=== PATIENT | female | born 1940 | race Caucasian/White ===

== ENCOUNTER 2017-12-27 08:47 | Observation (INO) | payer OTHER ==
[~2017-12-27] VITALS: Ht 162.6 cm; Wt 72.6 kg
[~2017-12-27 08:47] MED LIST: ATROVENT 0.02%2.5 ML INH; AZELASTINE137 MCG/0. INH; BYSTOLIC10 MG PO; CHERATUSSIN AC118 ML PO; FLUTICASONE PRO16 GM INH; FUROSEMIDE40 MG PO; HYZAAR 100-12.1 EACH; LEVAQUIN500 MG PO; NICOTINE PATCH1 EAC1 TOP; PHENERGAN VC-C120 ML PO; POTASSIUM CHLO10 ME1 PO; PREDNISONE10 M1 PO; PREDNISONE10 MG PO; PREDNISONE20 MG PO; PREDNISONE5 MG PO; SPIRIVA HANDIH18 MCG INH; SYMBICORT 160-4.6 GM IH; TESSALON PERLE100 M1; VENTOLIN HFA18 GM INH; XANAX0.25 MG PO; Z CIPRO PO; Z TYLENOL PO; Z.0.ALBUTEROL SULF8. HHN; Z.0.DALIRESP500 MCG PO; Z.0.PREDNISONE20 MG PO; Z.0.ZITHROMAX250 MG PO; [UNRECOGNIZED DRUG - OTHER] PO; [UNRECOGNIZED DRUG - OTHER] PO; lozartan
[2017-12-27] MEDS ORDERED: ONDANSETRON HCL INJ 2 MG/ML VIAL IV STA (09:07)
[2017-12-27] MEDS ORDERED: SODIUM CHLORIDE 0.9% 1000ML 1,000 ML IV STA (09:07)
[2017-12-27] MEDS ORDERED: MORPHINE SULFATE 2 MG/ML SYR IV STA (09:07)
--- NOTE | 2017-12-27 09:28 | Diagnostic Imaging Report ---
PROCEDURE: CHEST SINGLE (PORTABLE) COMPARISON: 09/03/2008. INDICATIONS: LEFT RIB PAIN, SHORT OF BREATH FINDINGS: The lungs are hyperinflated. Right greater than left apical pleural-parenchymal scar. Left upper lobe calcified granuloma. No airspace consolidation, pleural effusion, or pneumothorax. Tortuous thoracic aorta with otherwise normal cardiomediastinal contour. No acute osseous abnormality. CONCLUSION: No acute cardiopulmonary normality. Pulmonary hyperinflation compatible with emphysema. Right greater than left apical pleural-parenchymal scar, presumably postinfectious. Dictated by: Tam Flores M.D. on 12/27/2017 at 9:32 Electronically approved by: Tam Flores M.D. on 12/27/2017 at 9:32
[2017-12-27 09:49] LABS: BASOPHILS # (AUTO) 0.1 (0.0-0.1); BASOPHILS % 1.2 % (0.0-1.0); EOSINOPHILS # (AUTO) 0.2 (0.0-0.4); HEMATOCRIT 45.6 % (34.2-44.1); HEMOGLOBIN 15.8 g/dL (12.0-16.0); LYMPHOCYTES # (AUTO) 2.4 (1.0-3.2); LYMPHOCYTES % 22.9 % (18.0-39.1); MEAN CORPUSCULAR HEMOGLOBIN 31.3 pg (28-32); MEAN CORPUSCULAR HGB CONC 34.6 g/dL (31-35); MEAN CORPUSCULAR VOLUME 90.5 fL (81-99); MONOCYTES # (AUTO) 0.8 (0.2-0.8); MONOCYTES % 7.9 % (4.4-11.3); NEUTROPHILS # (AUTO) 6.8 (2.1-6.9); NEUTROPHILS % 65.8 % (38.7-80.0); PLATELET COUNT 271 x10e3/uL (140-360); RED BLOOD COUNT 5.04 x10e6/uL (3.6-5.1); RED CELL DISTRIBUTION WIDTH 12.8 % (11.7-14.4)
[2017-12-27 09:52] LABS: ABG HCO3 28 mmol/L (23-28); ABG PCO2 40 mmHg (41-51); ABG PH 7.46 (7.31-7.41); ABG PO2 110 mmHg (80-105)
[2017-12-27 10:03] LABS: INR 1.04; PROTHROMBIN TIME 12.8 seconds (11.9-14.5)
[2017-12-27 10:04] LABS: PARTIAL THROMBOPLASTIN TIME 27.1 seconds (23.8-35.5)
[2017-12-27 10:09] LABS: ALANINE AMINOTRANSFERASE 9 IU/L (0-55); ALBUMIN 3.8 g/dL (3.5-5.0); ALBUMIN/GLOBULIN RATIO 1.2 (0.8-2.0); ALKALINE PHOSPHATASE 78 IU/L (40-150); ANION GAP 13.8 mmol/L (8-16); BLOOD UREA NITROGEN 15 mg/dL (7-26); BUN/CREATININE RATIO 19 (6-25); CALCIUM 9.7 mg/dL (8.4-10.2); CARBON DIOXIDE 29 mmol/L (22-29); CHLORIDE 93 mmol/L (98-107); CREATINE KINASE 84 IU/L (29-168); CREATININE, SERUM 0.81 mg/dL (0.57-1.11); EST GLOMERULAR FILTRATION RATE > 60 ML/MIN (60-); GLUCOSE 101 mg/dL (74-118); POTASSIUM 3.8 mmol/L (3.5-5.1); SODIUM 132 mmol/L (136-145)
[2017-12-27] MEDS ORDERED: AZITHROMYCIN 500MG/SOD CHL 0.9% 250ML BAG IV SCH (11:00)
[2017-12-27] MEDS ORDERED: DEXTROSE 50% SYRINGE 50 ML IV PRN (11:00)
[2017-12-27] MEDS: INSULIN REGULAR, HUMAN 100 UNIT/1 ML 3ML VIAL SQ SCH ×3 (11:30→21:50)
[2017-12-27] MEDS ORDERED: IPRATROPIUM BROMIDE 0.02% 2.5 ML NEB NEB SCH (12:00)
[2017-12-27] MEDS ORDERED: AZITHROMYCIN 500MG/NS 250 ML 250 ML IV SCH (12:00)
[2017-12-27] MEDS: IPRATROPIUM BROMIDE 0.02% 2.5 ML NEB NEB SCH ×2 (12:08→19:42)
[2017-12-27] MEDS: ALBUTEROL SULF 0.083% NEB SOLN 3 ML NEB NEB SCH ×4 (12:08→23:08)
[2017-12-27] MEDS: SODIUM CHLORIDE 0.9% 1000ML 1,000 ML IV SCH ×2 (12:45→20:47)
[2017-12-27] MEDS: NICOTINE 21 MG/EA PATCH TOP SCH (13:19)
[2017-12-27] MEDS: METHYLPREDNISOLONE SOD SUCC 40 MG/ML VIAL IV SCH ×2 (14:00→21:50)
[2017-12-27 15:46] VITALS: BP 148/65
[2017-12-27] MEDS ORDERED: OXYBUTYNIN CHLOR5 MG PO (16:18)
[2017-12-27] MEDS ORDERED: ASPIR 8181 MG PO (16:21)
[2017-12-27] MEDS ORDERED: CALCIUM 600 MG1 EACH PO (16:25)
[2017-12-27] MEDS ORDERED: VITAMIN D32000 UNI1 PO (16:25)
[2017-12-27 16:54] VITALS: BP 148/65
[2017-12-27] MEDS ORDERED: LOSARTAN POTAS100 MG PO (17:15)
[2017-12-27] MEDS ORDERED: BUDESONIDE/FORMOTEROL 160/4.5MCG INHALER INH PRN (17:15)
[2017-12-27] MEDS ORDERED: ACETAMINOPHEN/CODEINE 300MG - 30MG TAB PO PRN (17:15)
[2017-12-27 20:00] VITALS: BP 137/57
[2017-12-27 21:50] VITALS: BP 137/59
[2017-12-28] VITALS (7 sets, daily range): BP systolic 128–143; BP diastolic 60–73
[2017-12-28] MEDS: ALBUTEROL SULF 0.083% NEB SOLN 3 ML NEB NEB SCH ×5 (02:45→22:38)
[2017-12-28] MEDS: IPRATROPIUM BROMIDE 0.02% 2.5 ML NEB NEB SCH ×4 (02:45→18:50)
[2017-12-28] MEDS: METHYLPREDNISOLONE SOD SUCC 40 MG/ML VIAL IV SCH (06:02)
[2017-12-28 06:07] LABS: BASOPHILS % 0.4 % (0.0-1.0); HEMATOCRIT 39.6 % (34.2-44.1); HEMOGLOBIN 13.6 g/dL (12.0-16.0); LYMPHOCYTES # (AUTO) 0.8 (1.0-3.2); LYMPHOCYTES % 10.1 % (18.0-39.1); MEAN CORPUSCULAR HEMOGLOBIN 31.5 pg (28-32); MEAN CORPUSCULAR HGB CONC 34.3 g/dL (31-35); MEAN CORPUSCULAR VOLUME 91.7 fL (81-99); MONOCYTES # (AUTO) 0.2 (0.2-0.8); MONOCYTES % 2.1 % (4.4-11.3); NEUTROPHILS # (AUTO) 6.5 (2.1-6.9); NEUTROPHILS % 87.1 % (38.7-80.0); PLATELET COUNT 208 x10e3/uL (140-360); RED BLOOD COUNT 4.32 x10e6/uL (3.6-5.1); RED CELL DISTRIBUTION WIDTH 12.8 % (11.7-14.4)
[2017-12-28 06:24] LABS: ANION GAP 10.2 mmol/L (8-16); BLOOD UREA NITROGEN 15 mg/dL (7-26); BUN/CREATININE RATIO 21 (6-25); CALCIUM 8.9 mg/dL (8.4-10.2); CARBON DIOXIDE 26 mmol/L (22-29); CHLORIDE 100 mmol/L (98-107); CREATININE, SERUM 0.71 mg/dL (0.57-1.11); EST GLOMERULAR FILTRATION RATE > 60 ML/MIN (60-); GLUCOSE 145 mg/dL (74-118); POTASSIUM 4.2 mmol/L (3.5-5.1); SODIUM 132 mmol/L (136-145)
--- NOTE | 2017-12-28 06:50 | Diagnostic Imaging Report ---
CHEST SINGLE (PORTABLE), 12/28/2017 5:00 AM Technique: CHEST SINGLE (PORTABLE) Comparison: Previous day Clinical history: Pneumonia Findings: See Impression Impression: 1. Stable cardiomediastinal silhouette. 2. Stable hyperinflation. 3. Stable mild left basilar opacity. No significant effusion. Signed by: Dr Diane Madsen MD on 12/28/2017 6:47 AM
[2017-12-28] MEDS: INSULIN REGULAR, HUMAN 100 UNIT/1 ML 3ML VIAL SQ SCH ×4 (07:30→21:00)
[2017-12-28] MEDS ORDERED: ALPRAZOLAM 0.25 MG TAB PO SCH (09:00)
[2017-12-28] MEDS: ASPIRIN 81 MG CHEW TAB PO SCH (10:45)
[2017-12-28] MEDS: NICOTINE 21 MG/EA PATCH TOP SCH (10:45)
[2017-12-28] MEDS: FUROSEMIDE 40 MG TAB PO SCH (10:45)
[2017-12-28] MEDS: OXYBUTYNIN CHLORIDE 5 MG TAB PO SCH (10:45)
[2017-12-28] MEDS: POTASSIUM CHLORIDE 10 MEQ TABCR PO SCH (10:45)
[2017-12-28] MEDS: LOSARTAN POTASSIUM 100 MG TAB PO SCH (10:45)
[2017-12-28] MEDS: NEBIVOLOL 10 MG TAB PO SCH (10:45)
[2017-12-28] MEDS ORDERED: HYDROCODONE/APAP 10MG-325MG TAB PO PRN (11:15)
[2017-12-28] MEDS ORDERED: ALPRAZOLAM 0.25 MG TAB PO PRN (12:00)
[2017-12-28] MEDS: BENZONATATE 100 MG CAP PO PRN ×2 (12:13→18:15)
--- NOTE | 2017-12-28 12:16 | Diagnostic Imaging Report ---
CT chest without enhancement CPT code: 43234 INDICATION: Fall, left rib pain TECHNIQUE: Thin collimation axial images obtained from the thoracic inlet to the level of the diaphragm without intravenous contrast. RADIATION DOSE: Total DLP: 557.9 mGy*cm Estimated effective dose: (DLP x 0.015 x size factor) mSv CTDIvol has been reviewed. It is below the limits set by the Radiation Protocol Committee (RPC). COMPARISON: CT chest 04/02/2016. CHEST FINDINGS: Lymph nodes: No enlarged axillary, supraclavicular lymph nodes. Multiple mediastinal lymph nodes measure up to 10 mm. No enlarged subcarinal or hilar lymph nodes. Thyroid: Low attenuating nodule in the right lobe measures 1.4 x 1.6 cm. This is stable.. Mediastinum: The heart is mildly enlarged with coronary artery calcifications. The ascending aorta measures 3.7 cm in diameter and is stable. The main pulmonary artery measures 3.1 cm in diameter and is stable. No pericardial effusion. The esophagus is collapsed. Airways: Clear. Lungs: Right: Moderate apical pleural-parenchymal thickening is stable. There is diffuse centrilobular emphysema. No pulmonary nodule or infiltrate.. Left: Moderate apical pleural-parenchymal thickening is stable. There is diffuse centrilobular emphysema. Calcified granuloma in the lateral upper lobe is stable. No soft tissue mass. There is mild left basilar atelectasis.. Pleura: Left pleural effusion the posterior costophrenic angle measures 13 mm. There is a 5 mm right pleural effusion. No pneumothorax.. ABDOMEN FINDINGS: Visualized portions of the liver, pancreas, and spleen demonstrate no evidence of mass. There is stable lobulation of the splenic capsule. A cyst in the right kidney measures 2.3 cm and is stable. Calcifications are present throughout the abdominal aorta without aneurysmal dilatation.. Bones: Nondisplaced fractures of the left seventh and eighth ribs, anterior aspects. No evidence of right rib fracture. The sternum is intact. Mild kyphosis of the thoracic spine is stable without compression deformities. Degenerative changes of the lower cervical and lower thoracic spine are stable. There are mild to moderate degenerative changes of the upper lumbar spine. Soft tissues: Unremarkable. IMPRESSION: 1. Nondisplaced fractures of the left seventh and eighth ribs, anterior aspects. 2. Small bilateral pleural effusions. No pneumothorax. 3. Centrilobular emphysema. Stable apical pleural-parenchymal thickening. 4. Stable thyroid nodule. 5. Stable ascending aortic ectasia. Signed by: Dr. Zainab Bardales MD on 12/28/2017 12:13 PM
[2017-12-28] MEDS: LEVOFLOXACIN 500 MG TAB PO SCH (12:30)
[2017-12-28] MEDS: PREDNISONE 20 MG TAB PO SCH (12:30)
[2017-12-28] MEDS: MELOXICAM 7.5 MG TAB PO SCH ×2 (12:30→18:12)
--- NOTE | 2017-12-28 23:28 | History and Physical ---
CHIEF COMPLAINT: Status post fall with left-sided rib cage pain and left thigh pain. HISTORY OF PRESENT ILLNESS: Patient is a 77-year-old female with chronic COPD, with acute exacerbation, after she fell and hit her left thigh. The patient was wheezing. She is oxygen dependent. Per patient, for the past few months, she has increased her smoking from 1 pack to 2 packs per day. The patient came in with increasing shortness of breath but more importantly shortness of breath that is secondary to her left-sided rib cage pain that was not addressed per patient. PAST MEDICAL HISTORY: COPD, hypertension, anxiety disorder, and oxygen dependent. PAST SURGICAL HISTORY: Noncontributory. SOCIAL HISTORY: Patient is a 2 elpk-mfa-hwn smoker for many years. She denied alcohol usage. No recreational drug usage. ALLERGIES: KEFLEX. HOME MEDICATIONS: List is reviewed. REVIEW OF SYSTEMS: Left-sided chest pain status post fall. Increasing shortness of breath with difficulty with deep inspiration secondary to the left-sided rib cage pain after a fall. Left leg pain. PHYSICAL EXAMINATION VITAL SIGNS: Temperature is 98, blood pressure 137/73, pulse rate 93, and respirations 18. GENERAL: The patient is not in acute distress. She is awake. HEENT: Normocephalic, atraumatic, anicteric. NECK: Supple grossly. PULMONARY: Diminished breath sounds without any coarseness. There was wheezing. CARDIOVASCULAR: Regular rate and rhythm. ABDOMEN: Soft. Left upper abdominal area rib cage tenderness with some bruising. EXTREMITIES: Left thigh bruises. NEUROLOGIC: No focal deficits. LABORATORY: WBC is 10, hemoglobin is 15, hematocrit 46, and platelets are 271,000. Chemistry: Sodium 132, potassium 4.2, chloride 100, bicarb 26, BUN 15, and creatinine 0.7, and glucose is 145. CT of the chest which was done showed nondisplaced fracture of the left 7th and 8th ribs in its anterior aspect. Small bilateral pleural effusion. No pneumothorax. Centrilobular emphysema. IMPRESSIONS 1. Status post fall with left-sided chest pain secondary to nondisplaced fracture of the left 7th and 8th rib cage. 2. Opotw-xz-lidacbr exacerbation of chronic obstructive pulmonary disease. PLAN: Continue with supportive measures. Pain control. Continue with oxygen support. The patient should be able to go home within 24 to 48 hours. Job#: [id number] CF
[2017-12-29] VITALS: BP 159/70
[2017-12-29] MEDS: IPRATROPIUM BROMIDE 0.02% 2.5 ML NEB NEB SCH ×4 (00:15→18:49)
[2017-12-29] MEDS: ALBUTEROL SULF 0.083% NEB SOLN 3 ML NEB NEB SCH ×4 (00:15→18:49)
[2017-12-29 04:00] VITALS: BP 139/64
[2017-12-29] MEDS: BENZONATATE 100 MG CAP PO PRN ×3 (05:30→18:00)
[2017-12-29] MEDS: INSULIN REGULAR, HUMAN 100 UNIT/1 ML 3ML VIAL SQ SCH ×4 (07:30→20:43)
[2017-12-29] MEDS: ASPIRIN 81 MG CHEW TAB PO SCH (08:50)
[2017-12-29] MEDS: NEBIVOLOL 10 MG TAB PO SCH (08:50)
[2017-12-29] MEDS: MELOXICAM 7.5 MG TAB PO SCH ×2 (08:50→18:00)
[2017-12-29] MEDS: OXYBUTYNIN CHLORIDE 5 MG TAB PO SCH (08:51)
[2017-12-29] MEDS: POTASSIUM CHLORIDE 10 MEQ TABCR PO SCH (08:51)
[2017-12-29] MEDS: PREDNISONE 20 MG TAB PO SCH (08:51)
[2017-12-29] MEDS: LOSARTAN POTASSIUM 100 MG TAB PO SCH (08:51)
[2017-12-29] MEDS: FUROSEMIDE 40 MG TAB PO SCH (09:00)
[2017-12-29 10:34] VITALS: BP 141/64
[2017-12-29] MEDS: NICOTINE 21 MG/EA PATCH TOP SCH (11:16)
[2017-12-29] MEDS: LEVOFLOXACIN 500 MG TAB PO SCH (11:17)
[2017-12-29] MEDS ORDERED: TRIAMCINOLONE ACET 40 MG/ML VIAL IM ONE (12:00)
[2017-12-29 12:31] VITALS: BP 141/64
[2017-12-29] MEDS ORDERED: LEVAQUIN500 MG PO (15:23)
[2017-12-29] MEDS ORDERED: TESSALON PERLE100 MG PO (15:25)
[2017-12-29] MEDS ORDERED: MOBIC15 MG PO (15:26)
[2017-12-29 16:49] VITALS: BP 158/69
--- NOTE | 2017-12-29 18:01 | Discharge Summary ---
PCP: Dr. Tam Beckett FINAL DIAGNOSES 1. Status post fall with left 6th and 7th rib fractures. 2. Baseline chronic obstructive pulmonary disease with mild acute exacerbation. 3. Baseline oxygen dependency. SUMMARY: This 77-year-old female came in status post fall. She had some left chest contusion and left thigh contusion; and because of the pain, the patient was unable to breathe as well. Baseline COPD, severe emphysema, on multiple medications. She is also oxygen dependent, 2 to 3 liters per minute. Patient is afebrile. White cell count is normal. CT scan showed left 7th and 8th ribs inferior aspect nondisplaced fractures. There are only small bilateral pleural effusions. Centrilobular emphysema. Stable apical pleural and parenchymal thickening. Patient is stable. She will go home today. She will discharge home with the following instructions: 1. Resume home medications. 2. Levaquin 500 mg daily for 5 days. 3. Lory-Tussin AC 5 mL q.6 p.r.n. for cough. 4. Tessalon Perles 100 mg q.4 p.r.n. for cough. 5. Mobic 7.5 mg b.i.d. for pain. 6. Medrol Dosepak per instructions. The patient does have Tylenol No. 3 at home. She also has other medications for her lungs as well. Advised the patient to increase her oxygen demand to 1 to 2 liters extra if she exerts herself or using a longer oxygen tube. The patient expressed an understanding. She is stable to go home today. Job#: [id number]
[2017-12-29 20:00] VITALS: BP 138/78
[2017-12-30] VITALS: BP 151/68
[2017-12-30] MEDS: ALBUTEROL SULF 0.083% NEB SOLN 3 ML NEB NEB SCH ×3 (00:10→11:23)
[2017-12-30] MEDS: IPRATROPIUM BROMIDE 0.02% 2.5 ML NEB NEB SCH ×3 (00:10→11:24)
[2017-12-30 04:00] VITALS: BP 144/63
[2017-12-30] MEDS: INSULIN REGULAR, HUMAN 100 UNIT/1 ML 3ML VIAL SQ SCH ×2 (07:30→11:30)
[2017-12-30 08:38] VITALS: BP 169/67
[2017-12-30] MEDS: ASPIRIN 81 MG CHEW TAB PO SCH (08:55)
[2017-12-30] MEDS: MELOXICAM 7.5 MG TAB PO SCH (08:55)
[2017-12-30] MEDS: NEBIVOLOL 10 MG TAB PO SCH (08:56)
[2017-12-30] MEDS: LOSARTAN POTASSIUM 100 MG TAB PO SCH (08:58)
[2017-12-30] MEDS: PREDNISONE 20 MG TAB PO SCH (08:58)
[2017-12-30] MEDS: FUROSEMIDE 40 MG TAB PO SCH (08:58)
[2017-12-30] MEDS: OXYBUTYNIN CHLORIDE 5 MG TAB PO SCH (08:58)
[2017-12-30] MEDS: POTASSIUM CHLORIDE 10 MEQ TABCR PO SCH (08:59)
[2017-12-30 09:00] VITALS: BP 169/67
[2017-12-30] MEDS ORDERED: LORATADINE 10 MG TAB PO SCH (09:00)
[2017-12-30] MEDS ORDERED: FLUTICASONE PROPIONATE NASAL SPRAY NS SCH (09:45)
[2017-12-30] MEDS: LEVOFLOXACIN 500 MG TAB PO SCH (11:21)
[2017-12-30] MEDS: NICOTINE 21 MG/EA PATCH TOP SCH (11:21)
[2017-12-30 12:28] VITALS: BP 147/67
[2017-12-30] MEDS ORDERED: SENNA LAX8.6 MG (14:23)
[2017-12-30] MEDS ORDERED: CLARITIN10 M2 (14:28)
[2017-12-30] MEDS ORDERED: NORCO 10-325 T1 EACH (14:41)
== END 2017-12-30 14:50 | disposition home or self-care (01) ==
LOC: ER 08:47 → ERHOLD 11:23 → MED/SURG 14:43
PROVIDERS: ADMIT Internal Medicine; ATTEND Internal Medicine
DX: J44.1 Chronic obstructive pulmonary disease with (acute) exacerbation (principal); S20.212A Contusion of left front wall of thorax, initial encounter; S22.42XA Multiple fractures of ribs, left side, initial encounter for closed fracture; S70.12XA Contusion of left thigh, initial encounter; I10 Essential (primary) hypertension; I11.0 Hypertensive heart disease with heart failure; I50.9 Heart failure, unspecified; E11.9 Type 2 diabetes mellitus without complications; F17.210 Nicotine dependence, cigarettes, uncomplicated; W19.XXXA Unspecified fall, initial encounter; Z99.81 Dependence on supplemental oxygen; F41.9 Anxiety disorder, unspecified
CPT/HCPCS: 36415 ×4; 71045 ×2; 71250; 80048; 80053; 82550; 82553; 82805; 82948 ×4; 83880; 84484; 85025 ×2; 85610; 85730; 87040; 93005; 94640 ×8; 99284; G0378 ×4; J0456; J2270; J2405; J2920 ×2; J3301; J7030; 36600

== ENCOUNTER 2018-05-07 13:36 | Inpatient (IN) | payer OTHER ==
[~2018-05-07] VITALS: Ht 162.6 cm; Wt 71.2 kg
[~2018-05-07 13:36] MED LIST changes: +ASPIR 8181 MG PO; +CALCIUM 600 MG1 EACH PO; +CLARITIN10 M2; +LOSARTAN POTAS100 MG PO; +MOBIC15 MG PO; +NORCO 10-325 T1 EACH; +OXYBUTYNIN CHLOR5 MG PO; +SENNA LAX8.6 MG; +TESSALON PERLE100 MG PO; +VITAMIN D32000 UNI1 PO
[2018-05-07] MEDS ORDERED: METHYLPREDNISOLONE SOD SUCC 125 MG/2ML VIAL IV ONE (15:00)
[2018-05-07] MEDS ORDERED: ALBUTEROL/IPRATROPIUM 3 ML NEB NEB ONE (15:00)
[2018-05-07 15:11] LABS: BASOPHILS # (AUTO) 0.1 (0.0-0.1); EOSINOPHILS # (AUTO) 0.1 (0.0-0.4); EOSINOPHILS % 0.7 % (0.0-6.0); HEMATOCRIT 42.8 % (34.2-44.1); HEMOGLOBIN 14.4 g/dL (12.0-16.0); LYMPHOCYTES # (AUTO) 1.7 (1.0-3.2); LYMPHOCYTES % 15.4 % (18.0-39.1); MEAN CORPUSCULAR HGB CONC 33.6 g/dL (31-35); MONOCYTES # (AUTO) 0.4 (0.2-0.8); MONOCYTES % 3.6 % (4.4-11.3); NEUTROPHILS # (AUTO) 8.9 (2.1-6.9); NEUTROPHILS % 78.9 % (38.7-80.0); PLATELET COUNT 241 x10e3/uL (140-360); RED BLOOD COUNT 4.65 x10e6/uL (3.6-5.1); RED CELL DISTRIBUTION WIDTH 12.8 % (11.7-14.4)
[2018-05-07 15:23] LABS: INR 0.88; PROTHROMBIN TIME 12.8 seconds (11.9-14.5)
[2018-05-07 15:24] LABS: PARTIAL THROMBOPLASTIN TIME 26.7 seconds (23.8-35.5)
--- NOTE | 2018-05-07 15:29 | Diagnostic Imaging Report ---
A single frontal view of the chest. HISTORY: Shortness of breath COMPARISON: Chest radiograph December 28, 2017. CT of the chest December 28, 2017. DISCUSSION: Portable technique, limits sensitivity of the exam. Overlying monitoring leads. Tubes/Lines: None Lungs and pleura: Mild biapical pleural-parenchymal scarring. Mild flattening of the diaphragms. No evidence of a consolidative pneumonia or pulmonary alveolar edema. No definite pleural effusion or pneumothorax is identified. Heart and mediastinum: The cardiomediastinal silhouette appears unremarkable. Bones: No acute osseous lesion is identified, given this limited exam. IMPRESSION: 1. Findings compatible with emphysema. 2. No consolidative pneumonia. Signed by: Dr. Sanjeev Morrison D.O., M.M.M. on 05/07/2018 3:25 PM
[2018-05-07 15:33] LABS: ALANINE AMINOTRANSFERASE 10 IU/L (0-55); ALBUMIN 3.4 g/dL (3.5-5.0); ALBUMIN/GLOBULIN RATIO 1.1 (0.8-2.0); ALKALINE PHOSPHATASE 67 IU/L (40-150); ANION GAP 16.9 mmol/L (8-16); BLOOD UREA NITROGEN 16 mg/dL (7-26); BUN/CREATININE RATIO 22 (6-25); CALCIUM 9.8 mg/dL (8.4-10.2); CARBON DIOXIDE 22 mmol/L (22-29); CHLORIDE 93 mmol/L (98-107); CREATINE KINASE 39 IU/L (29-168); CREATININE, SERUM 0.72 mg/dL (0.57-1.11); EST GLOMERULAR FILTRATION RATE > 60 ML/MIN (60-); GLUCOSE 117 mg/dL (74-118); MAGNESIUM 1.8 MG/DL (1.3-2.1); POTASSIUM 3.9 mmol/L (3.5-5.1); SODIUM 128 mmol/L (136-145)
[2018-05-07] MEDS ORDERED: VITAMIN B12-FO1 EACH PO (16:01)
[2018-05-07] MEDS ORDERED: TYLENOL WITH C1 EACH PO (16:01)
[2018-05-07] MEDS ORDERED: XANAX0.25 MG PO (16:01)
[2018-05-07] MEDS ORDERED: SYMBICORT 16010.2 GM INH (16:01)
[2018-05-07] MEDS ORDERED: VITAMIN D32000 UNIT PO (16:01)
[2018-05-07] MEDS ORDERED: ALBUTEROL/IPRATROPIUM 3 ML NEB NEB PRN (17:00)
--- NOTE | 2018-05-07 17:10 | NUR ---
AT 1645 PT LUNGS REASSESSED WHEEZING NOTED IN UPPER LOBES; MARY FOREST FIRE PREVENTION MANAGER NOTIFIED; BREATHING TREATMENT ORDERED
[2018-05-07] MEDS ORDERED: SODIUM CHLORIDE FLUSH 10 ML SYR INJ PRN (18:15)
[2018-05-07] MEDS ORDERED: MORPHINE SULFATE 2 MG/ML SYR IV STA (19:24)
--- NOTE | 2018-05-07 19:27 | NUR ---
PATIENT STATES SHE HAS HAD CHEST PRESSURE FOR THE PAST 10 MINUTES, DID EKG AND CHECKED LAST TROPONINS, EKG SHOWED NSR, MARY PLASTER WHITTLER REVIEWED EKG. ONE TIME ORDER OF MORPHINE. OK TO TRANSFER TO FLOOR
[2018-05-07] MEDS ORDERED: MORPHINE SULFATE INJ 4 MG/ML INJ IV ONE (19:45)
[2018-05-07] MEDS: METHYLPREDNISOLONE SOD SUCC 125 MG/2ML VIAL IV SCH (22:15)
--- NOTE | 2018-05-07 22:20 | NUR ---
Blood drawn and sent to lab for 2nd set of cardiac enzymes
[2018-05-07 23:15] LABS: CREATINE KINASE 46 IU/L (29-168)
[2018-05-08] VITALS (10 sets, daily range): BP systolic 120–155; BP diastolic 58–80
--- NOTE | 2018-05-08 00:05 | NUR ---
Pt resting comfortably with eyes closed. No s/s of distress noted.
[2018-05-08 05:20] LABS: BASOPHILS % 0.2 % (0.0-1.0); HEMATOCRIT 38.2 % (34.2-44.1); LYMPHOCYTES # (AUTO) 1.1 (1.0-3.2); LYMPHOCYTES % 19.3 % (18.0-39.1); MEAN CORPUSCULAR HEMOGLOBIN 30.9 pg (28-32); MEAN CORPUSCULAR VOLUME 90.7 fL (81-99); MONOCYTES # (AUTO) 0.2 (0.2-0.8); MONOCYTES % 3.3 % (4.4-11.3); NEUTROPHILS # (AUTO) 4.2 (2.1-6.9); NEUTROPHILS % 76.8 % (38.7-80.0); PLATELET COUNT 210 x10e3/uL (140-360); RED BLOOD COUNT 4.21 x10e6/uL (3.6-5.1); RED CELL DISTRIBUTION WIDTH 12.7 % (11.7-14.4)
[2018-05-08 05:42] LABS: ANION GAP 12.1 mmol/L (8-16); BLOOD UREA NITROGEN 20 mg/dL (7-26); BUN/CREATININE RATIO 29 (6-25); CALCIUM 9.1 mg/dL (8.4-10.2); CARBON DIOXIDE 25 mmol/L (22-29); CHLORIDE 95 mmol/L (98-107); CREATININE, SERUM 0.68 mg/dL (0.57-1.11); EST GLOMERULAR FILTRATION RATE > 60 ML/MIN (60-); GLUCOSE 146 mg/dL (74-118); MAGNESIUM 1.9 MG/DL (1.3-2.1); POTASSIUM 4.1 mmol/L (3.5-5.1); SODIUM 128 mmol/L (136-145)
[2018-05-08] MEDS: METHYLPREDNISOLONE SOD SUCC 125 MG/2ML VIAL IV SCH ×3 (05:50→21:30)
--- NOTE | 2018-05-08 05:50 | NUR ---
Pt states she feels short of breath. O2 saturation @ 98% on 2.5L via nc, RR 26. Accessory muscle use noted with breathing. Called respiratory for breathing treatment.
[2018-05-08] MEDS: ALBUTEROL/IPRATROPIUM 3 ML NEB NEB PRN ×4 (05:55→16:05)
[2018-05-08 06:42] LABS: CREATINE KINASE 50 IU/L (29-168)
[2018-05-08] MEDS: NICOTINE 7 MG PATCH TOP SCH (08:40)
--- NOTE | 2018-05-08 11:03 | NUR ---
Called Dr. Mason Sears's office and spoke with Maryanne for consult order.
[2018-05-08 12:50] LABS: CREATINE KINASE 60 IU/L (29-168)
[2018-05-08] MEDS ORDERED: ACETAMINOPHEN/CODEINE 300MG - 30MG TAB PO PRN (14:45)
[2018-05-08] MEDS: PROMETHAZINE/CODEINE 5 ML UDC PO PRN (15:27)
[2018-05-08] MEDS: BUDESONIDE/FORMOTEROL 160/4.5MCG INHALER INH SCH (17:00)
[2018-05-08 17:44] LABS: ABG HCO3 28 mmol/L (23-28); ABG PCO2 42 mmHg (41-51); ABG PH 7.43 (7.31-7.41); ABG PO2 98 mmHg (80-105)
--- NOTE | 2018-05-08 17:56 | History and Physical ---
CHIEF COMPLAINT: Acute exacerbation, of COPD, dyspnea and shortness of breath. HISTORY OF PRESENT ILLNESS: Patient is a 77-year-old female with chronic COPD, worsening condition. The patient is still smoking. She uses oxygen at home. The patient is with acute exacerbation of COPD. The patient is stable at this time. PAST MEDICAL HISTORY: COPD. Hypertension. History of lung nodule in the right upper lobe, status post biopsy, negative for malignancy at the time. Tonsillectomy. SOCIAL HISTORY: The patient is still a smoker. She does not drink alcohol. No recreational drug use. HOME MEDICATIONS: List reviewed. ALLERGIES: NO KNOWN ALLERGIES. REVIEW OF SYSTEMS: Shortness of breath and wheezing. PHYSICAL EXAMINATION: GENERAL: The patient is in no acute distress. She is awake. VITAL SIGNS: Temperature 98. Blood pressure 146/66. Pulse rate is 89, respirations 18. HEENT: Normocephalic, atraumatic. NECK: Supple grossly. PULMONARY: Diminished breath sounds with bilateral coarseness and rhonchi. CARDIOVASCULAR: S1 and S2. Regular rate and rhythm. ABDOMEN: Soft, nontender, nondistended. EXTREMITIES: No cyanosis or edema. NEUROLOGIC: No gross focal deficits. LABORATORY: Sodium is 128, potassium 4.1, chloride 98, bicarb 25, BUN 20, creatinine 0.6. Glucose 146. WBC 5.5, hemoglobin 13. Hematocrit 38. Platelets 210,000. IMPRESSION: 1. Acute exacerbation of chronic obstructive pulmonary disease. 2. Possible pneumonia. 3. History of right upper lobe mass, status post biopsies, non-malignant. PLAN: Continue with nebulizer treatment. Will monitor the patient closely. IV antibiotics. Nebulizer. IV steroids. Repeat CT scan of the chest. Job#: [id number]
[2018-05-08] MEDS: CEFTRIAXONE SOD 1 GM/NS 50 ML 50 ML IV SCH (18:05)
[2018-05-08] MEDS: AZITHROMYCIN 500MG/NS 250 ML 250 ML IV SCH (18:36)
--- NOTE | 2018-05-08 18:57 | NUR ---
Report given to Mason Varma RN
--- NOTE | 2018-05-08 19:23 | NUR ---
Nutrition Intervention Note RD Recommendation(s) for Physician: -Continue cardiac diet as ordered -Consider Ensure Compact BID if PO <50% -Encourage PO and hydration The patient meets criteria for MODERATE protein-calorie malnutrition. Plan of Care: RD following, monitoring for tolerance and adequacy Nutrition reason for involvement: MD Consult no reason stated RD Assessment 05/08 Chart reviewed. 77yo F, who is admitted for SOB and dyspnea. Visited pt in the room. Pt reports appetite comes and goes over the past month due to her sx. Pt states I just get out of breathe from eating. No GI complains noted. LBM 05/08, normal per pt. Pt denies any chewing or swallowing difficulty. Last weight check in July 2017 was 160lb; possible of ~12lb weight loss in a month (7.5% in 1 month- severe). NFPA showed slight clavicle protrusion, otherwise unremarkable. Encouraged PO intake. Will continue to monitor and follow. Principal Problems/Diagnoses: 1. Acute exacerbation of chronic obstructive pulmonary disease. 2. Possible pneumonia. PMH: COPD, Hypertension GI: LBM 05/08 Skin: Intact Labs: (05/08) Na 128 L, Glucose 146 H Meds: abx, solu-medrol Ht: 64in Wt: 148lb (bedscale) -05/08 BMI: 25.4kg/m2 IBW: 120lb Malnutrition Evaluation (05/08) The patient meets criteria for MODERATE protein-calorie malnutrition. Energy intake: <75% of estimated energy requirements for >1 month moderate Weight loss: >5% in 1 month (Acute) - severe Fat loss: Mild some clavicle protrusion Muscle loss: None Supporting Evidence: Fluid accumulation: unable to evaluate Functional Status: no changes Nutrition Prescription (Diet Order): cardiac diet Diet Adequacy: Not meeting calorie needs, Not meeting protein needs Diet Education Needs Assessment: Diet education not indicated. Nutrition Care Level: moderate Nutrition Diagnosis: Inadequate oral intake related to chronic illness as evidenced by poor PO and 12lb weight loss over a month. Goal: Patient will meet 75-100% of estimated needs by follow up Progress: N/A Interventions: Mineral-modified diet, Commercial beverage, Commercial food Monitoring/Evaluation: Total energy intake, Total protein intake, Modified diet, Liquid supplement, Weight change Signed: Crystal Cope, MS, RD, LD
--- NOTE | 2018-05-08 19:56 | Diagnostic Imaging Report ---
EXAM: CT Chest WITHOUT contrast 05/08/2018 5:25 PM INDICATION: ^SOB ^[id number] ^1800 COMPARISON: CT chest 12/28/2017 and chest radiograph 05/07/2018 TECHNIQUE: Chest was scanned utilizing a multidetector helical scanner from the lung apex through the level of the adrenal glands without administration of IV contrast. Absence of intravenous contrast decreases sensitivity for detection of lymphadenopathy and vascular pathology. Coronal and sagittal reformations were obtained. Routine protocol was performed. IV CONTRAST: None COMPLICATIONS: None RADIATION DOSE: Total DLP: 499.4 mGy*cm Estimated effective dose: (DLP x 0.015 x size factor) mSv CTDIvol has been reviewed. It is below the limits set by the Radiation Protocol Committee (RPC). FINDINGS: LINES/ TUBES: None. LUNGS AND AIRWAYS: Interval development of a spiculated solid pulmonary nodule in the superior segment of the right lower lobe abutting the fissure and measuring 17 x 10 mm on series 3, image 59. Left upper lobe calcified granuloma. Bilateral apical pleuroparenchymal scarring, right great than left remains stable. Mild central bilateral bronchiectasis with peribronchial wall thickening, stable. Advanced bilateral centrilobular and paraseptal emphysema. PLEURA: The pleural spaces are clear. HEART AND MEDIASTINUM: Stable 1.6 cm right thyroid lobe nodule. Stable few subcentimeter noncalcified mediastinal lymph nodes with the largest in the precarinal region measuring 0.9 cm on series 2, image 51. There appears to be a small right hilar lymph nodes, which are difficult to measure. The heart is normal in size. There is no pericardial effusion. Extensive coronary artery calcifications. The mid ascending thoracic aorta measures 3.5 cm on this exam, which is normal. Mild scattered atherosclerotic calcification throughout the thoracic aorta. Small hiatal hernia. UPPER ABDOMEN: Unchanged 2.3 cm right renal cyst. Mild bilateral perinephric fat stranding. Nonobstructing calcified stone in the left kidney is unchanged. BONES: Nondisplaced fractures of the left seventh and eighth ribs, unchanged. SOFT TISSUES: Unremarkable. IMPRESSION: 1. Right lower lobe spiculated nodule, measuring up to 17 mm and not present on 12/28/2017, remains indeterminate. Given the rapid appearance when compared to prior exam, this may represent infectious or atelectasis, however the morphology is worrisome for malignancy. - Recommend further evaluation with PET/CT. 2. Nonobstructing left nephrolithiasis. Signed by: Dr. Nereida Villarreal M.D. on 05/08/2018 7:52 PM
--- NOTE | 2018-05-08 21:00 | NUR ---
Walker provided and assisted pt to the restroom. Pt ambulatory with steady but slow gait. SOB with exertion. O2 3.0L via nc. Call light within reach. Will continue to monitor.
[2018-05-09] MEDS: ALBUTEROL/IPRATROPIUM 3 ML NEB NEB PRN ×4 (00:02→19:30)
[2018-05-09 04:00] VITALS: BP 151/67
[2018-05-09 05:10] LABS: BASOPHILS % 0.1 % (0.0-1.0); HEMOGLOBIN 12.6 g/dL (12.0-16.0); LYMPHOCYTES # (AUTO) 0.8 (1.0-3.2); LYMPHOCYTES % 8.9 % (18.0-39.1); MEAN CORPUSCULAR HEMOGLOBIN 31.1 pg (28-32); MEAN CORPUSCULAR HGB CONC 34.1 g/dL (31-35); MEAN CORPUSCULAR VOLUME 91.4 fL (81-99); MONOCYTES # (AUTO) 0.4 (0.2-0.8); MONOCYTES % 4.3 % (4.4-11.3); NEUTROPHILS # (AUTO) 7.4 (2.1-6.9); NEUTROPHILS % 86.1 % (38.7-80.0); PLATELET COUNT 223 x10e3/uL (140-360); RED BLOOD COUNT 4.05 x10e6/uL (3.6-5.1)
[2018-05-09] MEDS: PROMETHAZINE/CODEINE 5 ML UDC PO PRN ×2 (05:15→23:14)
[2018-05-09] MEDS: METHYLPREDNISOLONE SOD SUCC 125 MG/2ML VIAL IV SCH ×3 (05:15→21:17)
--- NOTE | 2018-05-09 05:27 | NUR ---
IV catheter to right ac visibly out of the skin and bent. New IV placed to right forearm. Medicated pt for coughing.
[2018-05-09 05:30] LABS: ALANINE AMINOTRANSFERASE 10 IU/L (0-55); ALBUMIN 2.9 g/dL (3.5-5.0); ALBUMIN/GLOBULIN RATIO 1.1 (0.8-2.0); ALKALINE PHOSPHATASE 48 IU/L (40-150); ANION GAP 12.2 mmol/L (8-16); BLOOD UREA NITROGEN 21 mg/dL (7-26); BUN/CREATININE RATIO 30 (6-25); CALCIUM 9.1 mg/dL (8.4-10.2); CARBON DIOXIDE 25 mmol/L (22-29); CHLORIDE 97 mmol/L (98-107); CREATININE, SERUM 0.69 mg/dL (0.57-1.11); EST GLOMERULAR FILTRATION RATE > 60 ML/MIN (60-); GLUCOSE 148 mg/dL (74-118); POTASSIUM 4.2 mmol/L (3.5-5.1); SODIUM 130 mmol/L (136-145)
[2018-05-09] MEDS ORDERED: INFLUENZA VIRUS VAC SPLIT INJ 0.5 ML SYR IM ONE (05:30)
--- NOTE | 2018-05-09 05:30 | NUR ---
Flu shot administered to right dorso gluteal per pt's request.
[2018-05-09 08:35] VITALS: BP 136/63
[2018-05-09 08:45] VITALS: BP 136/63
[2018-05-09] MEDS: ASPIRIN 81 MG CHEW TAB PO SCH (08:52)
[2018-05-09] MEDS: NICOTINE 7 MG PATCH TOP SCH (08:53)
[2018-05-09] MEDS: POTASSIUM CHLORIDE 10MEQ EA PO SCH ×2 (08:53→16:44)
[2018-05-09] MEDS: FUROSEMIDE 20 MG TAB PO SCH ×2 (08:53→16:44)
[2018-05-09] MEDS: LOSARTAN POTASSIUM 100 MG TAB PO SCH (08:53)
[2018-05-09] MEDS ORDERED: FUROSEMIDE 40 MG TAB PO SCH (09:00)
[2018-05-09] MEDS: ALBUTEROL SULFATE HFA 8GM INHALATION AEROSOL INH SCH (09:00)
--- NOTE | 2018-05-09 09:29 | NUR ---
CASE MANAGEMENT INITIAL ASSESSMENT Quality Control Technician to bedside to discuss plan of care with patient/family. CM/SW role and care transitions discussed. Anticipated discharge plan discussed along with duration of care. CM/SW discussed patients right to make decisions in care. CM/SW work hours given. Patient lives: CURRENTLY IN APARTMENT BUT WILL BE RELOCATING WITH SON AND DAUGHTER IN LAW ANNA Admit/Transfer: VIA ED FROM HOME POA/Emergency contact: ANNA JEFFRIES [phone] Current/Previous Home Health: NONE PCP/Follow-up Care: HERIBERTO Current/Previous DME: [facility] Other Services: NONE Employment Status: RETIRED Areas of Concerns: NONE Referral Needs: NONE Education Needs: NONE IMM/GARCIA given and signed (if applicable): GARCIA Goal for discharge: RETURN HOME BY SELF INDEPENDENTLY OR WITH FAMILY CM/SW left business card at the bedside with contact information. Name and number was also written on the patients whiteboard. Patient verbalized understanding of discussion. CM will follow-up with ongoing discharge and transition of care needs.
[2018-05-09] MEDS: BUDESONIDE/FORMOTEROL 160/4.5MCG INHALER INH SCH ×2 (11:45→19:30)
[2018-05-09 11:50] VITALS: BP 143/62
[2018-05-09 13:25] LABS: ANION GAP 16.5 mmol/L (8-16); BLOOD UREA NITROGEN 21 mg/dL (7-26); BUN/CREATININE RATIO 30 (6-25); CALCIUM 9.2 mg/dL (8.4-10.2); CARBON DIOXIDE 25 mmol/L (22-29); CHLORIDE 94 mmol/L (98-107); CREATININE, SERUM 0.71 mg/dL (0.57-1.11); EST GLOMERULAR FILTRATION RATE > 60 ML/MIN (60-); GLUCOSE 94 mg/dL (74-118); POTASSIUM 4.5 mmol/L (3.5-5.1); SODIUM 131 mmol/L (136-145)
[2018-05-09] MEDS ORDERED: ZOLPIDEM TARTRATE 5 MG TAB PO PRN (14:00)
[2018-05-09] MEDS: ENOXAPARIN SOD INJ 40 MG/0.4 ML SYR SC SCH (16:44)
[2018-05-09] MEDS: AZITHROMYCIN 500MG/NS 250 ML 250 ML IV SCH (16:45)
[2018-05-09] MEDS: CEFTRIAXONE SOD 1 GM/NS 50 ML 50 ML IV SCH (16:45)
[2018-05-09 16:59] VITALS: BP 147/75
--- NOTE | 2018-05-09 17:46 | NUR ---
Patient will need a prescription for a SPC. She currently uses a make-shift cane that has poor traction and can cause the patient to fall.
--- NOTE | 2018-05-09 19:17 | NUR ---
Report received and walking rounds complete. Pt A&O and in no apparent distress and all safety measures ensured. Pt encouraged to use call dempsey for assistance.
[2018-05-09 20:33] VITALS: BP 151/67
[2018-05-10 00:44] VITALS: BP 165/71
[2018-05-10] MEDS: METHYLPREDNISOLONE SOD SUCC 125 MG/2ML VIAL IV SCH ×3 (06:01→22:26)
--- NOTE | 2018-05-10 07:02 | NUR ---
Report given to oncoming nurse
[2018-05-10] MEDS: ALBUTEROL/IPRATROPIUM 3 ML NEB NEB PRN ×3 (07:03→21:20)
[2018-05-10] MEDS: BUDESONIDE/FORMOTEROL 160/4.5MCG INHALER INH SCH ×2 (07:03→21:20)
[2018-05-10] MEDS: ALBUTEROL SULFATE HFA 8GM INHALATION AEROSOL INH SCH ×2 (07:04→10:15)
[2018-05-10 08:20] VITALS: BP 159/71
[2018-05-10] MEDS: POTASSIUM CHLORIDE 10MEQ EA PO SCH ×2 (09:08→16:24)
[2018-05-10] MEDS: LOSARTAN POTASSIUM 100 MG TAB PO SCH (09:08)
[2018-05-10] MEDS: FUROSEMIDE 20 MG TAB PO SCH ×2 (09:08→16:24)
[2018-05-10] MEDS: NICOTINE 7 MG PATCH TOP SCH (09:08)
[2018-05-10] MEDS: ASPIRIN 81 MG CHEW TAB PO SCH (09:08)
[2018-05-10 09:33] VITALS: BP 159/71
[2018-05-10 12:00] VITALS: BP 162/71
--- NOTE | 2018-05-10 14:26 | Progress Note ---
DATE: May 10, 2018 SUBJECTIVE: The patient still complains of dyspnea and fatigue. She reports cough that is unrelieved with the promethazine and codeine. She was evaluated by nutrition, who recommended nutritional supplements. OBJECTIVE VITAL SIGNS: Stable. HEENT: Shows no facial swelling or erythema. The oropharynx is normal. LYMPHATIC: Shows no submandibular, cervical, or supraclavicular adenopathy. CARDIAC: Reveals regular rate and rhythm with normal S1 and S2. There are no murmurs or rubs. LUNGS: Auscultation of lungs reveals clear breath sounds bilaterally. There is no wheezing. ABDOMEN: Soft and nontender. There is no rebound or guarding. EXTREMITIES: Show no leg edema or calf tenderness. There is no cyanosis or clubbing. SKIN: Shows no rashes. IMPRESSION 1. Severe chronic obstructive lung disease with acute exacerbation. 2. Moderate protein-calorie malnutrition. 3. Hypertension. 4. Hyponatremia. PLAN Continue Solu-Medrol along with antibiotics and bronchodilators. Nutritional supplements with meals. Physical therapy. Smoking cessation. Echocardiogram. Consider noninvasive ventilator at home. Job#: [id number] NAYELI
[2018-05-10] MEDS: CEFTRIAXONE SOD 1 GM/NS 50 ML 50 ML IV SCH (16:24)
[2018-05-10] MEDS: ENOXAPARIN SOD INJ 40 MG/0.4 ML SYR SC SCH (16:24)
[2018-05-10] MEDS: PROMETHAZINE/CODEINE 5 ML UDC PO PRN (16:26)
[2018-05-10 16:30] VITALS: BP 159/71
--- NOTE | 2018-05-10 16:39 | NUR ---
Patient transferred to unit from OBS. Patient is AAOx3. Patient arrived via stretcher. Lung stokes diminished. Bowel sounds present x4. Patient has some noted shortness of breath. O2 at 3L NC. Patient ambulates with a walker. No c/o pain. Right wrist 22G
--- NOTE | 2018-05-10 16:45 | NUR ---
patient transferred to floor. report called to chip MAIER. all personal belongings with patient. vitals stable with no distress at time of transfer.
[2018-05-10] MEDS: AZITHROMYCIN 500MG/NS 250 ML 250 ML IV SCH (17:23)
[2018-05-10 20:00] VITALS: BP_SYST 158; BP_SYST 159; BP_DIAS 72
--- NOTE | 2018-05-10 20:10 | NUR ---
ASSESSMENT DONE.NO RESP.DISTRESS.HAS SHORTNESS OF BREATH.02 3L NC ON FLOW.AMBULATES .VOIDED.NO PAIN VOICED.BED LOCKED AND IN LOWEST POSITION.PHONE AND CALL LIGHT WITHIN REACH.INSTRUCTED TO CALL FOR ASSISTANCE NEEDED.FREQUENT ROUNDS.
[2018-05-11] VITALS (8 sets, daily range): BP systolic 155–180; BP diastolic 70–79
[2018-05-11] MEDS: ALBUTEROL/IPRATROPIUM 3 ML NEB NEB PRN ×5 (00:05→18:20)
[2018-05-11] MEDS: METHYLPREDNISOLONE SOD SUCC 125 MG/2ML VIAL IV SCH ×3 (05:19→22:04)
[2018-05-11] MEDS: PROMETHAZINE/CODEINE 5 ML UDC PO PRN ×2 (05:19→22:39)
--- NOTE | 2018-05-11 06:56 | NUR ---
REPORT GIVEN TO THE ONCOMING RN.WALKING ROUNDS DONE.STABLE CONDITION.
[2018-05-11] MEDS: BUDESONIDE/FORMOTEROL 160/4.5MCG INHALER INH SCH ×2 (07:19→14:02)
[2018-05-11] MEDS: ALBUTEROL SULFATE HFA 8GM INHALATION AEROSOL INH SCH (07:19)
--- NOTE | 2018-05-11 07:30 | NUR ---
Order received for Bedside Swallow Evaluation on 05/10/18. Pt with new RLL lung nodule and history of past lung nodule. Severe COPD with diminished lung sounds, current smoker. Pt considered for possible home ventilator. Pt with current diet of regular consistency and supplement of boost. Pt should have MBS to determine swallow safety due to lung complications that reduce ability to determine safety at bedside. Will complete Saturday if patient is able.
--- NOTE | 2018-05-11 07:41 | NUR ---
Rcvd patient in report this am. Patient is awake on edge of bed at this time. No s/s of distress noted
[2018-05-11] MEDS: POTASSIUM CHLORIDE 10MEQ EA PO SCH ×2 (09:13→17:30)
[2018-05-11] MEDS: NICOTINE 7 MG PATCH TOP SCH (09:13)
[2018-05-11] MEDS: LOSARTAN POTASSIUM 100 MG TAB PO SCH (09:13)
[2018-05-11] MEDS: FUROSEMIDE 20 MG TAB PO SCH ×2 (09:13→17:30)
[2018-05-11] MEDS: ASPIRIN 81 MG CHEW TAB PO SCH (09:13)
--- NOTE | 2018-05-11 09:45 | NUR ---
Patient is AAox3. Patient lung stokes diminished to auscultation with some audible wheezing noted. Patient has severe shortness of breath at rest and ambulation. O2 at 3L NC. Patient ambulates with rolling walker. Bowel sounds present x4. No edema noted. Right wrist 22G in place.
[2018-05-11 13:30] LABS: CHOL/HDL RATIO 2.2 (3.0-3.6); CHOLESTEROL 205 MD/DL (0-199); CREATINE KINASE 65 IU/L (29-168); HDL CHOLESTEROL 94 MG/DL (40-60); LDL CHOLESTEROL 91 MG/DL (60-130); TRIGLYCERIDES 99 MG/DL (0-149)
[2018-05-11 13:51] LABS: THYROID STIMULATING HORMONE 0.156 uIU/mL (0.350-4.940)
--- NOTE | 2018-05-11 15:01 | Consultation ---
DATE OF CONSULT: May 11, 2018 REQUESTING PHYSICIAN: Dr. Torres. REASON FOR CONSULTATION: Chest pain. HISTORY OF PRESENT ILLNESS: Ms. Oliveira is a 77-year-old lady with past medical history as listed below, presented with complaints of shortness of breath. Patient has been a chronic smoker, smokes 2 pack a day. She has severe COPD. Apparently has been getting progressively short of breath, which has gotten worse and also has been having cough for the last month or so, so she decided to come to the hospital. She has been placed on bronchodilators, antibiotics, and steroids. Today, the patient reportedly complained of chest pain. Patient on questioning states that she gets a fullness in her chest when she takes a deep breath or when she gets short-winded. Denies any abdominal pain, vomiting, or diarrhea. Denies any known cardiac issues. REVIEW OF SYMPTOMS CONSTITUTIONAL: Has some fatigue and weakness. HEENT: No headache, blurry vision, seizures, or syncope. CARDIOVASCULAR: Questionable chest pain. Has dyspnea. Has some orthopnea. No leg edema or PND. RESPIRATORY: Has cough. No fever or expectoration. GI: No abdominal pain, vomiting, or diarrhea. : No dysuria, frequency, or incontinence. ALLERGIES: NO KNOWN DRUG ALLERGIES. MEDICATIONS: See list. PAST MEDICAL HISTORY 1. History of COPD. 2. History of lung cancer. 3. Tobacco use. 4. History of hypertension. SOCIAL HISTORY: Smokes 2 packs a day and has smoked for more than 50 years. She does not drink alcohol. FAMILY HISTORY: Noncontributory. PHYSICAL EXAMINATION GENERAL: Morbidly built and nourished lady, awake, alert, is tremulous and mildly dyspneic. VITALS: Heart rate is 96, blood pressure 167/79, respiratory rate is 18. HEENT: Atraumatic. NECK: No JVD, bruits, thyromegaly, or lymphadenopathy. CARDIOVASCULAR: First and second heart sounds heard. No murmurs, rubs, or gallops appreciated. CHEST: Decreased air entry at the bases. No adventitious sounds appreciated. ABDOMEN: Soft and nontender. EXTREMITIES: Trace left lower extremity edema. LABORATORY DATA: Sodium is 131, potassium 4.5, chloride 94, bicarb 25, BUN is 21, creatinine 0.7. Glucose 94. Hemoglobin is 12.6, hematocrit 37, platelets are 223. White count is 8.5. IMPRESSION 1. Chest pain, atypical. 2. Exacerbation of chronic obstructive pulmonary disease. 3. Hypertension 4. Lung cancer. PLAN Follow serial cardiac enzymes. Get echocardiogram to assess LV function and valvular function. The patient is on antibiotics and steroids. Can continue the same.4. Patient has been counseled on tobacco cessation. 5. Further cardiac workup depending on clinical course. Discussed my impression and plan of management with the patient and she understands. As always, I appreciate and thank you very much for referrals. Job#: [id number] NAYELI
[2018-05-11] MEDS: ENOXAPARIN SOD INJ 40 MG/0.4 ML SYR SC SCH (17:30)
[2018-05-11] MEDS: CEFTRIAXONE SOD 1 GM/NS 50 ML 50 ML IV SCH (17:30)
[2018-05-11] MEDS: AZITHROMYCIN 500MG/NS 250 ML 250 ML IV SCH (17:37)
[2018-05-11] MEDS: ALPRAZOLAM 0.25 MG TAB PO PRN (23:54)
[2018-05-12] VITALS (8 sets, daily range): BP systolic 136–167; BP diastolic 63–84
--- NOTE | 2018-05-12 00:30 | NUR ---
ASSESSMENT DONE.NO RESP.DISTRESS.HAS SHORTNESS OF BREATH.02 3L NC ON FLOW.AMBULATES .VOIDED.GETTING NEB TREATMENT.NO PAIN VOICED.BED LOCKED AND IN LOWEST POSITION.PHONE AND CALL LIGHT WITHIN REACH.INSTRUCTED TO CALL FOR ASSISTANCE NEEDED.FREQUENT ROUNDS.
[2018-05-12] MEDS: ALBUTEROL/IPRATROPIUM 3 ML NEB NEB PRN ×6 (04:35→19:20)
[2018-05-12] MEDS: METHYLPREDNISOLONE SOD SUCC 125 MG/2ML VIAL IV SCH ×3 (05:39→22:00)
[2018-05-12 06:13] LABS: CREATINE KINASE 44 IU/L (29-168)
--- NOTE | 2018-05-12 06:50 | NUR ---
REPORT GIVEN TO THE ONCOMING RN.WALKING ROUNDS DONE.STABLE CONDITION.
[2018-05-12] MEDS: BUDESONIDE/FORMOTEROL 160/4.5MCG INHALER INH SCH (07:00)
--- NOTE | 2018-05-12 07:00 | NUR ---
bedside rounds complete no distress noted, updated on poc voiced understanding, denies pain at this time, call light in reach will continue ot monitor
[2018-05-12] MEDS: ALBUTEROL SULFATE HFA 8GM INHALATION AEROSOL INH SCH (08:22)
[2018-05-12] MEDS: ASPIRIN 81 MG CHEW TAB PO SCH (10:52)
[2018-05-12] MEDS: POTASSIUM CHLORIDE 10MEQ EA PO SCH ×2 (10:53→17:02)
[2018-05-12] MEDS: LOSARTAN POTASSIUM 100 MG TAB PO SCH (10:53)
[2018-05-12] MEDS: FUROSEMIDE 20 MG TAB PO SCH ×2 (10:53→17:02)
[2018-05-12] MEDS: NICOTINE 7 MG PATCH TOP SCH (10:57)
--- NOTE | 2018-05-12 10:58 | NUR ---
assessment complete no distress noted,updated on poc voiced understanding, denies pain at this time, o2 @ 4l nc, r fa 22g sl no ss of infiltration noted, no other co voiced call light in reach will continue to monitor
--- NOTE | 2018-05-12 12:53 | Diagnostic Imaging Report ---
PROCEDURE:X-RAY MODIFIED BARIUM SWALLOW COMPARISON:None. INDICATIONS:Dyspnea, COPD exacerbation with possible aspiration. DISCUSSION:Fluoroscopic examination was performed in conjunction with speech pathology, during swallowing of a variety of thin and thick liquid consistencies. A total of 6 separate fluoroscopic images of the swallowing mechanism was performed in the lateral projection and stored to the medical record. There is a prominent cricopharyngeus muscle impression on the posterior aspect of the esophagus at C4-C5. Fluoroscopy time: 1.7 minutes Total dose: 10.68 mGy CONCLUSION: 1. There is intermittent flash penetration into the laryngeal vestibule. 2. One episode of trace silent aspiration was noted. 3. Please see the report from speech pathology for complete details. Rock Eubanks D.O. Dictated by: Rock Eubanks D.O. on 05/12/2018 at 12:25 Electronically approved by: Rock Eubanks D.O. on 05/12/2018 at 13:03
--- NOTE | 2018-05-12 14:31 | NUR ---
report given to receiving nurse, pt to transfer to 293 with all belongings once room available Addendum: 05/12/18 at 1513 by Valentine Bourgeois RN pt to transfer to 289
--- NOTE | 2018-05-12 15:00 | NUR ---
pt transferred to 289 in stable condition with all belongings
[2018-05-12] MEDS: ALPRAZOLAM 0.25 MG TAB PO PRN (15:13)
--- NOTE | 2018-05-12 15:15 | NUR ---
PT RECIEVED FROM MED SURG 1, AA&O3, VIA W/C. ORIENTED TO ROOM AND CALL LIGHT WITHIN RANGE. PT ON 02 ,4L VIA N/C . PT APPEARS ANXIOUS, PRN XANAX ADMINISTERED A/O. SAFETY PRECAUTIONS MAINTAINED.
[2018-05-12] MEDS ORDERED: SODIUM CHLORIDE 0.9% 250ML 250 ML ONE (16:46)
[2018-05-12] MEDS: CEFTRIAXONE SOD 1 GM/NS 50 ML 50 ML IV SCH (17:02)
[2018-05-12] MEDS: ENOXAPARIN SOD INJ 40 MG/0.4 ML SYR SC SCH (17:02)
[2018-05-12] MEDS: AZITHROMYCIN 500MG/NS 250 ML 250 ML IV SCH (17:39)
[2018-05-12] MEDS: PROMETHAZINE/CODEINE 5 ML UDC PO PRN (18:35)
[2018-05-13] VITALS (8 sets, daily range): BP systolic 116–164; BP diastolic 56–73
[2018-05-13] MEDS: ALBUTEROL/IPRATROPIUM 3 ML NEB NEB PRN ×5 (00:02→22:50)
[2018-05-13] MEDS: ALBUTEROL SULFATE HFA 8GM INHALATION AEROSOL INH SCH (06:48)
[2018-05-13] MEDS: BUDESONIDE/FORMOTEROL 160/4.5MCG INHALER INH SCH ×2 (06:48→16:39)
--- NOTE | 2018-05-13 07:47 | NUR ---
NO ACUTE DISTRESS NOTED .PT RESTING .CALL LIGHT WITH IN REACH
[2018-05-13] MEDS: LOSARTAN POTASSIUM 100 MG TAB PO SCH (08:36)
[2018-05-13] MEDS: FUROSEMIDE 20 MG TAB PO SCH ×2 (08:36→16:14)
[2018-05-13] MEDS: ASPIRIN 81 MG CHEW TAB PO SCH (08:36)
[2018-05-13] MEDS: POTASSIUM CHLORIDE 10MEQ EA PO SCH ×2 (08:36→16:14)
[2018-05-13] MEDS: NICOTINE 7 MG PATCH TOP SCH (08:36)
[2018-05-13] MEDS ORDERED: GUAIFENESIN/CODEINE 10 ML CUP PO PRN (09:30)
[2018-05-13] MEDS ORDERED: BENZONATATE 100 MG CAP PO PRN (09:30)
[2018-05-13] MEDS: BENZONATATE 100 MG CAP PO SCH ×2 (10:25→14:24)
[2018-05-13] MEDS: PROMETHAZINE/CODEINE 5 ML UDC PO PRN (11:18)
[2018-05-13] MEDS: FLUTICASONE PROPIONATE NASAL SPRAY NS SCH ×2 (11:20→16:14)
[2018-05-13] MEDS: METHYLPREDNISOLONE SOD SUCC 40 MG/ML VIAL IV SCH ×2 (13:58→14:25)
[2018-05-13] MEDS ORDERED: METHYLPREDNISOLONE SOD SUCC 125 MG/2ML VIAL IV SCH (14:00)
[2018-05-13] MEDS: CEFTRIAXONE SOD 1 GM/NS 50 ML 50 ML IV SCH (16:14)
[2018-05-13] MEDS: ENOXAPARIN SOD INJ 40 MG/0.4 ML SYR SC SCH (16:14)
[2018-05-13] MEDS: ALPRAZOLAM 0.25 MG TAB PO PRN (16:15)
[2018-05-13] MEDS: AZITHROMYCIN 500MG/NS 250 ML 250 ML IV SCH (17:14)
--- NOTE | 2018-05-13 17:54 | NUR ---
PT ALERT AND ORIENTED X3 , CONTINUE ON IV ANTIBIOTICS AND NEB TX. NO S/S OF RESP DISTRESS
--- NOTE | 2018-05-13 18:19 | NUR ---
Nutrition Intervention Note RD Recommendation(s) for Physician: - Continue cardiac diet as ordered - Discontinue Glucerna order (PO intake ~75-100%) The patient meets criteria for MODERATE protein-calorie malnutrition. Plan of Care: RD following, monitoring for tolerance and adequacy Nutrition reason for involvement: Follow up RD Assessment 05/13 - Chart reviewed. Pt was discussed during rounds. Currently on IV abx, steroid and neb treatment. Visited pt in the room. Pt reports good appetite with 75-100% meal intake. Pt also drinks 100% of Glucerna ordered. No GI complains noted. LBM 05/13. Pt denies any chewing or swallowing difficulty. Will continue to monitor and follow. 05/08 Chart reviewed. 77 yo F, who is admitted for SOB and dyspnea. Visited pt in the room. Pt reports appetite comes and goes over the past month due to her sx. Pt states I just get out of breathe from eating. No GI complains noted. LBM 05/08, normal per pt. Pt denies any chewing or swallowing difficulty. Last weight check in July 2017 was 160lb; possible of ~12lb weight loss in a month (7.5% in 1 month- severe). NFPA showed slight clavicle protrusion, otherwise unremarkable. Encouraged PO intake. Will continue to monitor and follow. Principal Problems/Diagnoses: 1. Acute exacerbation of chronic obstructive pulmonary disease. 2. Possible pneumonia. PMH: COPD, Hypertension GI: LBM 05/13 Skin: Intact Labs: (05/13) no lab since 05/09 (05/08) Na 128 L, Glucose 146 H Meds: Lasix, KCl, solu-medrol Ht: 64in Wt: 148lb (bedscale) -05/08, 150lb 05/13 BMI: 25.4kg/m2 IBW: 120lb Malnutrition Evaluation (05/08) The patient meets criteria for MODERATE protein-calorie malnutrition. Energy intake: <75% of estimated energy requirements for >1 month moderate Weight loss: >5% in 1 month (Acute) - severe Fat loss: Mild some clavicle protrusion Muscle loss: None Supporting Evidence: Fluid accumulation: unable to evaluate Functional Status: no changes Nutrition Prescription (Diet Order): cardiac diet Diet Adequacy: meeting calorie needs, meeting protein needs Diet Education Needs Assessment: Diet education not indicated. Nutrition Care Level: low Nutrition Diagnosis: None at this time. Goal: Patient will meet 75-100% of estimated needs by follow up Progress: Goal met Interventions: Mineral-modified diet, Commercial beverage Monitoring/Evaluation: Total energy intake, Total protein intake, Modified diet, Liquid supplement, Weight change Signed: Crystal Cope MS, RD, LD
--- NOTE | 2018-05-13 19:57 | NUR ---
RECEIVED PT IN BED AOX3 .RESPIRATIONS ARE EVEN AND UNLABORED .SKIN WARM AND DRY TO TOUCH ,CALL LIGHT WITH IN REACH CONTINUE TO MONITOR
[2018-05-14] VITALS (11 sets, daily range): BP systolic 117–154; BP diastolic 56–65
[2018-05-14] MEDS: BENZONATATE 100 MG CAP PO SCH ×4 (00:21→20:39)
[2018-05-14] MEDS: ALBUTEROL/IPRATROPIUM 3 ML NEB NEB PRN ×5 (02:55→23:15)
[2018-05-14 05:47] LABS: ANION GAP 13.5 mmol/L (8-16); BLOOD UREA NITROGEN 32 mg/dL (7-26); BUN/CREATININE RATIO 43 (6-25); CALCIUM 8.7 mg/dL (8.4-10.2); CARBON DIOXIDE 30 mmol/L (22-29); CHLORIDE 93 mmol/L (98-107); CREATININE, SERUM 0.75 mg/dL (0.57-1.11); EST GLOMERULAR FILTRATION RATE > 60 ML/MIN (60-); GLUCOSE 117 mg/dL (74-118); POTASSIUM 4.5 mmol/L (3.5-5.1); SODIUM 132 mmol/L (136-145)
--- NOTE | 2018-05-14 06:43 | NUR ---
PT RESTED DURING THE NIGHT .NO ACUTE DISTRESS NOTED .CONTINUE TO MONITOR
[2018-05-14] MEDS: IPRATROPIUM BROMIDE 0.03% NASAL SPRAY 30ML SCH ×2 (07:00→20:39)
[2018-05-14 07:01] LABS: BASOPHILS % 0.1 % (0.0-1.0); HEMATOCRIT 39.2 % (34.2-44.1); HEMOGLOBIN 13.2 g/dL (12.0-16.0); LYMPHOCYTES # (AUTO) 1.4 (1.0-3.2); LYMPHOCYTES % 12.2 % (18.0-39.1); MEAN CORPUSCULAR HEMOGLOBIN 31.3 pg (28-32); MEAN CORPUSCULAR HGB CONC 33.7 g/dL (31-35); MEAN CORPUSCULAR VOLUME 92.9 fL (81-99); MONOCYTES % 8.6 % (4.4-11.3); NEUTROPHILS # (AUTO) 8.6 (2.1-6.9); NEUTROPHILS % 77.7 % (38.7-80.0); PLATELET COUNT 277 x10e3/uL (140-360); RED BLOOD COUNT 4.22 x10e6/uL (3.6-5.1); RED CELL DISTRIBUTION WIDTH 13.1 % (11.7-14.4)
--- NOTE | 2018-05-14 07:45 | NUR ---
RECEIVED PATIENT RESTING IN BED. NO ACUTE DISTRESS NOTED. DENIES PAIN OR DISCOMFORT AT THIS TIME. CALL LIGHT WITHIN REACH. BED IN THE LOWEST POSITION.
[2018-05-14] MEDS: BUDESONIDE/FORMOTEROL 160/4.5MCG INHALER INH SCH ×2 (07:55→23:15)
[2018-05-14] MEDS: ALBUTEROL SULFATE HFA 8GM INHALATION AEROSOL INH SCH (07:55)
--- NOTE | 2018-05-14 08:49 | Discharge Summary ---
CONSULTANTS: Dr. Daren Sears and Dr. Gerhard Zavala. PCP: Dr. Tam Beckett FINAL DIAGNOSES 1. Acute exacerbation of chronic obstructive pulmonary disease associated with acute hypoxia with acute bronchitis. 2. Right lower lobe spiculated nodule measuring 17 mm, not present on computerized tomography scan on December 28, 2017. This remains indeterminate. Follow up for possible PET scan as an outpatient. Dr. Daren Sears aware. SUMMARY: A 77-year-old female, oxygen dependent, advanced COPD, on oxygen support, came in with acute exacerbation of COPD associated acute bronchitis. Patient has received nebulizer treatment and IV steroids. She is doing much better now. CT of the chest showed right lower lobe spiculated nodule measuring 17 mm. Recommending for followup of further PET scan given the patient's history of long-time smoker and COPD. Patient is stable now. Her wheezing has resolved. She is able to tolerate all her treatments. She is doing well. At this time, she is stable. She will go home today after lunch. She will continue with home medications. She has Tessalon as needed for cough, Flonase nasal spray, prednisone 10 mg daily for 10 days, doxycycline mononitrate 1 mg twice a day for 7 days, Lory-Tussin AC as needed for cough. Patient is stable for discharge home today. Follow up Dr. Daren Sears and PCP within 1 week. Job#: [id number] [place]
[2018-05-14] MEDS: FLUTICASONE PROPIONATE NASAL SPRAY NS SCH ×2 (09:21→16:34)
[2018-05-14] MEDS: ASPIRIN 81 MG CHEW TAB PO SCH (09:25)
[2018-05-14] MEDS: DILTIAZEM HCL ER 120 MG CAPCR PO SCH (09:25)
[2018-05-14] MEDS: LOSARTAN POTASSIUM 100 MG TAB PO SCH (09:25)
[2018-05-14] MEDS: NICOTINE 7 MG PATCH TOP SCH (09:26)
[2018-05-14] MEDS: POTASSIUM CHLORIDE 10MEQ EA PO SCH ×2 (09:26→16:34)
[2018-05-14] MEDS: FUROSEMIDE 20 MG TAB PO SCH ×2 (09:26→16:35)
--- NOTE | 2018-05-14 09:40 | NUR ---
This charge nurse rounded on the patient at this time. Pt denies any complaints and denies any concerns. Pt verbalizes understanding of plan of care.
[2018-05-14] MEDS: ALPRAZOLAM 0.25 MG TAB PO PRN (13:14)
[2018-05-14] MEDS: METHYLPREDNISOLONE SOD SUCC 40 MG/ML VIAL IV SCH ×2 (13:29→21:48)
--- NOTE | 2018-05-14 14:53 | NUR ---
MET W THE BEDSIDE NURSE; LIBRA, AND DR. GIORDANO TO DISCUSS DC PLAN. DR. GIORDANO DID NOT FEEL THE PT. WAS READY FOR DC HOME. CALL WAS PLACED TO DR. TOMLIN BY BEDSIDE NURSE TO DISCUSS DC ORDER FOR PT TODAY. GIULIANA SPOKE W SADA. THE DC WAS CANCELLED DUE TO PT BEING VERY SOB. ORDER WAS GIVEN BY DR. TOMLIN FOR CM TO ADDRESS HH NEEDS. 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 DISCUSSED PLAN W THE PT AT THE BEDSIDE. PT AGREED. PROVIDED CHOICE. PT HAD USED [employer] IN THE PAST AND REQUESTED TO USE. CHOICE LETTER WAS SIGNED. WILL FAX REVIEW TO [employer] STAFF @ OFF: [phone] / FAX: [phone]. EXPLAINED IMM LETTER. PT VERBALIZED UNDERSTANDING. STATES SHE DID NOT WANT TO DO THAT. PT SIGNED IMM LETTER. COPY GIVEN TO THE PT W CM'S BUSINESS CARD AND COPY TO THE CHART. PT STATES HER SON IN FEBRUARY AND SHE WOULD BE MOVING TO HIS HOME W THE DIL. STATES SHE WILL BE MOVING FROM HER APARTMENT PROBABLY ON SATURDAY OR SATURDAY; THE NEIGHBORS ARE HELPING HER MOVE. PT STATES SHE WOULD LIKE ASSISTANCE WITH HER BATH TODAY. NOTIFIED NURSING. Addendum: 05/14/18 at 1535 by Sherie Todd HOME DME: [facility], [facility], NEBULIZER, HOME O2. GIULIANA WILL ARRANGE NON-INVASIVE VENT.
--- NOTE | 2018-05-14 14:55 | NUR ---
SHOWER OFFERED X 2, PATIENT REFUSED.
[2018-05-14] MEDS ORDERED: SODIUM CHLORIDE 0.9% 250ML 250 ML ONE (16:28)
[2018-05-14] MEDS: CEFTRIAXONE SOD 1 GM/NS 50 ML 50 ML IV SCH (16:35)
[2018-05-14] MEDS: ENOXAPARIN SOD INJ 40 MG/0.4 ML SYR SC SCH (16:35)
[2018-05-14] MEDS: AZITHROMYCIN 500MG/NS 250 ML 250 ML IV SCH (17:14)
--- NOTE | 2018-05-14 19:13 | NUR ---
REPORT GIVEN TO ONCOMING NURSE. PATIENT IS SITTING UP IN BED. NO ACUTE DISTRESS NOTED. CALL LIGHT WITHIN REACH. BED IN THE LOWEST POSITION.
--- NOTE | 2018-05-14 19:15 | NUR ---
Received pt in bed aaox3. Noted SOB at rest. Has N/C running 3L, O2 Sat 97%. Denies pain. Call light within reach and instructed to call for assistance. Pt verbalized understanding.
[2018-05-15] VITALS (8 sets, daily range): BP systolic 142–147; BP diastolic 64–67
[2018-05-15] MEDS: ALBUTEROL/IPRATROPIUM 3 ML NEB NEB PRN ×5 (02:35→22:00)
[2018-05-15] MEDS: METHYLPREDNISOLONE SOD SUCC 40 MG/ML VIAL IV SCH ×3 (06:00→21:49)
[2018-05-15] MEDS: IPRATROPIUM BROMIDE 0.03% NASAL SPRAY 30ML SCH ×2 (06:00→18:00)
--- NOTE | 2018-05-15 07:25 | NUR ---
RECEIVED PATIENT RESTING IN BED. NO ACUTE DISTRESS NOTED. DENIES PAIN OR DISCOMFORT AT THIS TIME. CALL LIGHT WITHIN REACH. BED IN THE LOWEST POSITION.
[2018-05-15] MEDS: BUDESONIDE/FORMOTEROL 160/4.5MCG INHALER INH SCH ×2 (07:47→19:00)
[2018-05-15] MEDS: ALBUTEROL SULFATE HFA 8GM INHALATION AEROSOL INH SCH (07:48)
[2018-05-15] MEDS: FLUTICASONE PROPIONATE NASAL SPRAY NS SCH ×2 (08:43→16:56)
[2018-05-15] MEDS: ASPIRIN 81 MG CHEW TAB PO SCH (08:46)
[2018-05-15] MEDS: BENZONATATE 100 MG CAP PO SCH ×3 (08:47→20:38)
[2018-05-15] MEDS: LOSARTAN POTASSIUM 100 MG TAB PO SCH (08:47)
[2018-05-15] MEDS: DILTIAZEM HCL ER 120 MG CAPCR PO SCH (08:47)
[2018-05-15] MEDS: POTASSIUM CHLORIDE 10MEQ EA PO SCH ×2 (08:47→16:58)
[2018-05-15] MEDS: NICOTINE 7 MG PATCH TOP SCH (08:47)
[2018-05-15] MEDS: FUROSEMIDE 20 MG TAB PO SCH ×2 (08:47→16:58)
--- NOTE | 2018-05-15 16:51 | NUR ---
CELLED DR. TOMLIN TO SEE IF HE WANTED IV ABT ORDER RENEWED, PER DR. TOMLIN PATIENT DOES NOT NEED ANTIBIOTICS ANYMORE.
[2018-05-15] MEDS: ENOXAPARIN SOD INJ 40 MG/0.4 ML SYR SC SCH (16:59)
--- NOTE | 2018-05-15 17:48 | NUR ---
CALLED DR. GIORDANO TO FIND OUT ABOUT NON-INVASIVE VENTILATOR, NO ANSWER, LVM.
--- NOTE | 2018-05-15 18:16 | NUR ---
DR. GIORDANO CALLED BACK AND STATED HE DOES NOT KNOW YET IF THE NON-INVASIVE VENTILATOR WILL BE APPROVED BY INSURANCE OR NOT. WILL NOTIFY DR. TOMLIN TOMORROW.
--- NOTE | 2018-05-15 19:15 | NUR ---
Received pt in bed aaox3. No s/s of resp distress. Has N/C running 3L, O2 Sat 94%. Denies pain. Call light within reach and instructed to call for assistance. Pt verbalized understanding.
--- NOTE | 2018-05-15 19:18 | NUR ---
REPORT GIVEN TO ONCOMING NURSE. PATIENT IS SITTING UP IN BED. NO ACUTE DISTRESS NOTED. CALL LIGHT WITHIN REACH. BED IN THE LOWEST POSITION.
[2018-05-16 00:05] VITALS: BP 145/66
[2018-05-16] MEDS: ALBUTEROL/IPRATROPIUM 3 ML NEB NEB PRN ×3 (02:20→11:01)
[2018-05-16 04:00] VITALS: BP 145/62
[2018-05-16] MEDS: METHYLPREDNISOLONE SOD SUCC 40 MG/ML VIAL IV SCH (05:29)
[2018-05-16] MEDS: IPRATROPIUM BROMIDE 0.03% NASAL SPRAY 30ML SCH (05:29)
[2018-05-16 07:35] VITALS: BP 155/69
--- NOTE | 2018-05-16 07:35 | NUR ---
RECEIVED PATIENT RESTING IN BED. NO ACUTE DISTRESS NOTED. NO PAIN OR DISCOMFORT AT THIS TIME. CALL LIGHT WITHIN REACH. BED IN THE LOWEST POSITION.
[2018-05-16 08:12] VITALS: BP 155/69
[2018-05-16] MEDS: FLUTICASONE PROPIONATE NASAL SPRAY NS SCH (09:06)
[2018-05-16] MEDS: ASPIRIN 81 MG CHEW TAB PO SCH (09:06)
[2018-05-16] MEDS: BENZONATATE 100 MG CAP PO SCH (09:07)
[2018-05-16] MEDS: NICOTINE 7 MG PATCH TOP SCH (09:07)
[2018-05-16] MEDS: FUROSEMIDE 20 MG TAB PO SCH (09:07)
[2018-05-16] MEDS: POTASSIUM CHLORIDE 10MEQ EA PO SCH (09:07)
[2018-05-16] MEDS: DILTIAZEM HCL ER 120 MG CAPCR PO SCH (09:10)
[2018-05-16] MEDS: LOSARTAN POTASSIUM 100 MG TAB PO SCH (09:11)
--- NOTE | 2018-05-16 09:25 | NUR ---
HOME HEALTH DISCHARGE NOTE PATIENT ADDRESS WHERE SERVICE WILL BE RECEIVED: [address] [place] [address] PATIENT CONTACT NUMBER: [phone] NAME OF HOME HEALTH COMPANY: [facility] TELEPHONE/FAX NUMBER OF COMPANY: OFF: [phone] / FAX: [phone] ADDRESS OF COMPANY: [address] [place] [id number] SERVICES TO RECEIVE: INTERMEDIATE, PHYSICAL THERAPY, OCCUPATIONAL THERAPY FOR HOME HEALTH AIDE, SPEECH THERAPY FOR NMES ANTICIPATED DATE SERVICES WILL BEGIN: WITHIN 3 DAYS OF DISCHARGE Please call the company above if you have not received a call to schedule a home visit within 24 hours of discharge.
[2018-05-16] MEDS: ALBUTEROL SULFATE HFA 8GM INHALATION AEROSOL INH SCH (11:02)
--- NOTE | 2018-05-16 11:51 | NUR ---
CALL TO KYLE STEWARD THIS AM. STATES PT'S AUTH FOR NONINVASIVE VENT CAN TAKE UP TO 5 DAYS. ALSO STATES SHE MAY NOT MEET CRITERIA, BUT WILL HAVE TO WAIT ON INSURANCE. MET W DR. TOMLIN TO DISCUSS DC PLANS. STATES THE PT WAS ALREADY DC'D. INFORMED HH HAS BEEN ARRANGED. STATES PT OK TO DC HOME TODAY. MET W THE PT AT THE BEDSIDE. PT SIGNED IMM LETTER. COPY TO CHART AND COPY PLACED IN PT'S TRANSITION CARE FOLDER. PT WAS GIVEN HH NOTE FOR REFERENCE. VERBALIZED UNDERSTANDING. STATES THE NURSE CAN CONTACT HER DAUGHTER IN LAW; ANNA. # GIVEN TO LIBRA; BEDSIDE RN.
--- NOTE | 2018-05-16 12:13 | Progress Note ---
DATE: May 16, 2018 SUBJECTIVE: Patient is improved but still has some dyspnea and congestion. She does not want any correction facility or inpatient rehab. OBJECTIVE VITAL SIGNS: The blood pressure is 155/70 and the pulse is 110. Respiratory rate is 18, saturation is 100%. HEENT: Shows no facial swelling or erythema. CARDIAC: Regular rate and rhythm with a normal S1 and S2. There are no murmurs or rubs. LUNGS: Auscultation of lungs reveals prolonged expiratory phase bilaterally. There is no audible wheezing. ABDOMEN: Soft and nontender. There is no rebound or guarding. EXTREMITIES: Shows no leg edema or calf tenderness. There is no cyanosis or clubbing. IMPRESSIONS 1. Sozus-xe-pfpaeas respiratory failure. 2. Moderate protein calorie malnutrition. 3. Pulmonary nodule with prior biopsy that was benign. 4. Hypertension. 5. Hyponatremia. PLANS 1. Patient will go home with a Medrol taper along with antibiotics. 2. Continue bronchodilators. 3. Home oxygen. 4. Arrangements are being made for a noninvasive ventilator at home. The patient is aware of her poor prognosis. Noninvasive ventilator at home. 1. Poor long-term prognosis. 2. Follow up with Dr. Sears in 5 to 10 days. Job#: [id number] JAZZY
[2018-05-16 12:48] VITALS: BP 168/69
--- NOTE | 2018-05-16 12:53 | NUR ---
IV LINE DC'D WITH TIP INTACT, PRESSURE APPLIED TO SITE, NO BLEEDING NOTED.
[2018-05-16 13:00] VITALS: BP 148/62
--- NOTE | 2018-05-16 13:30 | NUR ---
DISCHARGE ORDER RECEIVED FROM MD. PATIENT IS IN STABLE CONDITION. NO ACUTE DISTRESS NOTED. DISCHARGE TEACHING PROVIDED, PATIENT VERBALIZED UNDERSTANDING. PATIENT GIVEN COPY OF HOME HEALTH INFORMATION BY CASE MANAGEMENT. ALL DISCHARGE PAPERWORK, PRESCRIPTIONS, AND PERSONAL ITEMS ON HAND. PATIENT ACCOMPANIED TO PRIVATE AUTO BY STAFF VIA WHEELCHAIR.
== END 2018-05-16 13:31 | disposition home health service (06) | DRG 189 ==
LOC: ER 13:36 → ERHOLD 18:04 → IMCU 20:09 → OBSVTOIN 05-08 17:23 → MED/SURG 05-10 16:40 → MED/SURG3 05-12 14:45
PROVIDERS: ADMIT Internal Medicine; ATTEND Internal Medicine
DX: J96.21 Acute and chronic respiratory failure with hypoxia (principal); J44.1 Chronic obstructive pulmonary disease with (acute) exacerbation; E44.0 Moderate protein-calorie malnutrition; E87.1 Hypo-osmolality and hyponatremia; J44.0 Chronic obstructive pulmonary disease with (acute) lower respiratory infection; J20.9 Acute bronchitis, unspecified; Z99.81 Dependence on supplemental oxygen; Z85.118 Personal history of other malignant neoplasm of bronchus and lung; I10 Essential (primary) hypertension; R91.8 Other nonspecific abnormal finding of lung field
CPT/HCPCS: 36415; 36600; 71045; 71250; 74230; 80048; 80053; 80061; 82550; 82553; 82805; 82948; 83735; 83880; 84443; 84484; 85025; 85610; 85730; 93005; 93306; 94640; 99283; G0378; J0456; J0696; J1650; J2270; J2920; J2930; J7050

== ENCOUNTER 2018-06-23 10:41 | Emergency (ER) | payer MEDICARE, OTHER ==
[~2018-06-23] VITALS: Ht 162.6 cm; Wt 71.2 kg
[~2018-06-23 10:41] MED LIST changes: +SYMBICORT 16010.2 GM INH; +TYLENOL WITH C1 EACH PO; +VITAMIN B12-FO1 EACH PO; +VITAMIN D32000 UNIT PO
[2018-06-23] MEDS ORDERED: DEXAMETHASONE SOD PHOS 10 MG/1 ML VIAL IV ONE (11:15)
[2018-06-23] MEDS ORDERED: ALBUTEROL/IPRATROPIUM 3 ML NEB NEB ONE (11:15)
--- NOTE | 2018-06-23 11:59 | NUR ---
PATIENT IS A VERY HARD STICK SO BLOOD WORK AND MEDS ARE DELAYED.
--- NOTE | 2018-06-23 12:00 | NUR ---
VENOUS DOPPLER WAS DONE AT BEDSIDE
--- NOTE | 2018-06-23 12:11 | Diagnostic Imaging Report ---
EXAMINATION: PA and lateral views of the chest. COMPARISON: CT scan of the chest without contrast 05/08/2018 CLINICAL HISTORY: Cough, congestion, wheezing DISCUSSION: Lungs are hyperinflated with biapical emphysematous changes. Left upper lobe calcified granuloma. 1.7 cm spiculated right lower lobe nodule described on the comparison CT is poorly visualized by plain radiography. No consolidation or effusion. Tortuous thoracic aorta. Normal heart size without overt pulmonary edema. No acute osseous abnormality. IMPRESSION: No acute cardiopulmonary abnormality. Emphysematous changes and sequela of prior granulomatous disease. Refer to CT scan of the chest 05/08/2018 for further description and recommendations concerning right sided pulmonary nodule, poorly visualized by plain radiography. Signed by: Dr. Tam Flores M.D. on 06/23/2018 12:07 PM
--- NOTE | 2018-06-23 12:15 | NUR ---
BLOOD WAS ATTAINED AND SENT TO LAB. PT SITTING UPRIGHT ON STRETCHER IN NAD. REMAINS ON NASAL CANNULA
[2018-06-23 12:34] LABS: BASOPHILS # (AUTO) 0.1 (0.0-0.1); BASOPHILS % 1.3 % (0.0-1.0); EOSINOPHILS % 0.3 % (0.0-6.0); HEMATOCRIT 40.8 % (34.2-44.1); HEMOGLOBIN 13.8 g/dL (12.0-16.0); LYMPHOCYTES # (AUTO) 1.1 (1.0-3.2); MEAN CORPUSCULAR HEMOGLOBIN 30.9 pg (28-32); MEAN CORPUSCULAR HGB CONC 33.8 g/dL (31-35); MEAN CORPUSCULAR VOLUME 91.5 fL (81-99); MONOCYTES # (AUTO) 0.3 (0.2-0.8); NEUTROPHILS # (AUTO) 7.9 (2.1-6.9); NEUTROPHILS % 83.1 % (38.7-80.0); PLATELET COUNT 256 x10e3/uL (140-360); RED BLOOD COUNT 4.46 x10e6/uL (3.6-5.1); RED CELL DISTRIBUTION WIDTH 13.6 % (11.7-14.4)
[2018-06-23 12:49] LABS: BLOOD UREA NITROGEN 14 mg/dL (7-26); BUN/CREATININE RATIO 19 (6-25); CALCIUM 9.1 mg/dL (8.4-10.2); CARBON DIOXIDE 25 mmol/L (22-29); CHLORIDE 95 mmol/L (98-107); CREATININE, SERUM 0.73 mg/dL (0.57-1.11); EST GLOMERULAR FILTRATION RATE > 60 ML/MIN (60-); GLUCOSE 109 mg/dL (74-118); SODIUM 131 mmol/L (136-145)
[2018-06-23 12:54] LABS: ANION GAP 18.7 mmol/L (8-16); POTASSIUM 7.7 mmol/L (3.5-5.1)
--- NOTE | 2018-06-23 13:00 | NUR ---
LAB CALLED AND REPORTED POTASSIUM 7.7. CALLED THE LAB TO DO A RE-DRAW FOR VERIFICATION
--- NOTE | 2018-06-23 14:40 | NUR ---
PT DISCHARGED TO HOME. [facility] IS COMING TO PICK HER UP. DISCHARGE INSTRUCTIONS GIVEN. FOLLOW UP CARE DISCUSSED. PT VERB. UNDERSTANDING.
[2018-06-23 15:33] VITALS: BP 118/65
== END 2018-06-23 14:45 | disposition home or self-care (01) ==
LOC: ER 10:41
DX: R06.00 Dyspnea, unspecified (principal); R05 Cough; J44.1 Chronic obstructive pulmonary disease with (acute) exacerbation; R60.9 Edema, unspecified; M79.662 Pain in left lower leg; F17.210 Nicotine dependence, cigarettes, uncomplicated
CPT/HCPCS: 36415; 71046; 80048; 83880; 84132; 85025; 93005; 93971; 99284; J1100

== ENCOUNTER 2021-06-29 18:01 | Inpatient (IN) | payer MEDICARE ==
[~2021-06-29] VITALS: Ht 162.6 cm; Wt 59.0 kg
[2021-06-29 18:24] LABS: BASOPHILS # (AUTO) 0.1 (0.0-0.1); BASOPHILS % 0.3 % (0.0-1.0); EOSINOPHILS % 0.1 % (0.0-6.0); HEMATOCRIT 43.2 % (34.2-44.1); HEMOGLOBIN 13.7 g/dL (12.0-16.0); LYMPHOCYTES # (AUTO) 0.9 (1.0-3.2); MEAN CORPUSCULAR HEMOGLOBIN 30.5 pg (28-32); MEAN CORPUSCULAR HGB CONC 31.7 g/dL (31-35); MEAN CORPUSCULAR VOLUME 96.2 fL (81-99); MONOCYTES # (AUTO) 0.4 (0.2-0.8); MONOCYTES % 2.4 % (4.4-11.3); NEUTROPHILS # (AUTO) 14.1 (2.1-6.9); NEUTROPHILS % 90.8 % (38.7-80.0); PLATELET COUNT 309 x10e3/uL (140-360); RED BLOOD COUNT 4.49 x10e6/uL (3.6-5.1); RED CELL DISTRIBUTION WIDTH 12.4 % (11.7-14.4)
[2021-06-29 18:39] LABS: ALBUMIN 3.5 g/dL (3.5-5.0); ALBUMIN/GLOBULIN RATIO 0.9 (0.8-2.0); ANION GAP 17.6 mmol/L (8-16); CALCIUM 9.7 mg/dL (8.4-10.2); CREATININE, SERUM 0.81 mg/dL (0.57-1.11); POTASSIUM 4.6 mmol/L (3.5-5.1)
[2021-06-29 18:45] LABS: CREATINE KINASE MB 4.3 ng/mL (0-5.0)
[2021-06-29 18:46] LABS: B-TYPE NATRIURETIC PEPTIDE2 152.4 pg/mL (0-100)
[2021-06-29] MEDS ORDERED: SODIUM CHLORIDE 0.9% 50ML 50 ML ONE (19:31)
[2021-06-29] MEDS ORDERED: IOPAMIDOL 370 MG/ML 200 ML INFUS..BTL INJ ONE (19:31)
[2021-06-29] MEDS ORDERED: ALBUTEROL/IPRATROPIUM 3 ML NEB NEB STA (20:23)
[2021-06-29] MEDS ORDERED: ALBUTEROL/IPRATROPIUM 3 ML NEB NEB PRN (21:15)
[2021-06-29 22:00] VITALS: BP 170/87
[2021-06-29] MEDS: SODIUM CHLORIDE 0.9% 1000ML 1,000 ML IV SCH (23:28)
[2021-06-30] VITALS (9 sets, daily range): BP systolic 124–170; BP diastolic 54–87
[2021-06-30] MEDS ORDERED: METHYLPREDNISOLONE SOD SUCC 40 MG/ML VIAL 1ML IV SCH
[2021-06-30 01:11] LABS: CREATINE KINASE MB 6.7 ng/mL (0-5.0)
[2021-06-30] MEDS: IPRATROPIUM BROMIDE 0.02% 2.5 ML NEB NEB SCH ×4 (02:15→19:25)
[2021-06-30] MEDS ORDERED: MAGNESIUM/ALUMINUM/SIMETHICONE 30 ML UDC PO PRN (02:15)
[2021-06-30] MEDS ORDERED: ONDANSETRON HCL INJ 2MG/ML 2ML 2 MG/ML VIAL IV PRN (02:15)
[2021-06-30] MEDS ORDERED: MELATONIN 3 MG TAB PO PRN (02:15)
[2021-06-30] MEDS ORDERED: ALBUTEROL SULF 0.083% NEB SOLN 3 ML NEB NEB PRN (02:15)
[2021-06-30] MEDS ORDERED: BUDESONIDE-FO10.2 G1 (02:17)
[2021-06-30] MEDS ORDERED: K DUR10 MEQ (02:17)
[2021-06-30] MEDS ORDERED: FUROSEMIDE20 MG (02:17)
[2021-06-30] MEDS ORDERED: ALPRAZOLAM0.25 MG (02:17)
[2021-06-30] MEDS ORDERED: IPRAT-ALBUT 0.5-3 ML (02:17)
[2021-06-30] MEDS ORDERED: IPRATROPIU0.2 MG/1 M INH (02:33)
[2021-06-30] MEDS ORDERED: [UNRECOGNIZED DRUG - OTHER] (02:36)
[2021-06-30] MEDS ORDERED: VITAMIN B COMPLEX (02:36)
[2021-06-30] MEDS ORDERED: NASAL SPRAY (02:37)
[2021-06-30] MEDS ORDERED: VITAMIN D 5000 (02:39)
[2021-06-30] MEDS: CEFTRIAXONE 1 GM in SODIUM CHLORIDE 0.9% 50ML 50 ML IV SCH ×2 (03:26→09:38)
[2021-06-30] MEDS ORDERED: DOXYCYCLINE HYCLATE 100 MG VIAL IV ONE (04:10)
[2021-06-30] MEDS ORDERED: SODIUM CHLORIDE 0.9% 100 ML ONE (04:11)
[2021-06-30] MEDS: Doxycycline IV 100 MG in SODIUM CHLORIDE 0.9% 100 ML IV SCH ×2 (05:21→13:13)
[2021-06-30] MEDS: SODIUM CHLORIDE 0.9% 1000ML 1,000 ML IV SCH ×3 (05:22→20:13)
[2021-06-30] MEDS: ALPRAZOLAM 0.25 MG TAB PO PRN (05:38)
[2021-06-30 06:42] LABS: BASOPHILS % 0.2 % (0.0-1.0); HEMATOCRIT 36.8 % (34.2-44.1); HEMOGLOBIN 11.7 g/dL (12.0-16.0); LYMPHOCYTES # (AUTO) 0.7 (1.0-3.2); LYMPHOCYTES % 12.7 % (18.0-39.1); MEAN CORPUSCULAR HEMOGLOBIN 30.3 pg (28-32); MEAN CORPUSCULAR HGB CONC 31.8 g/dL (31-35); MEAN CORPUSCULAR VOLUME 95.3 fL (81-99); MONOCYTES # (AUTO) 0.2 (0.2-0.8); MONOCYTES % 3.4 % (4.4-11.3); NEUTROPHILS # (AUTO) 4.7 (2.1-6.9); NEUTROPHILS % 83.2 % (38.7-80.0); PLATELET COUNT 293 x10e3/uL (140-360); RED BLOOD COUNT 3.86 x10e6/uL (3.6-5.1); RED CELL DISTRIBUTION WIDTH 12.4 % (11.7-14.4)
[2021-06-30 07:05] LABS: ALBUMIN 3.2 g/dL (3.5-5.0); ALBUMIN/GLOBULIN RATIO 1.1 (0.8-2.0); ANION GAP 15.3 mmol/L (8-16); CALCIUM 9.1 mg/dL (8.4-10.2); CREATININE, SERUM 0.78 mg/dL (0.57-1.11); POTASSIUM 4.3 mmol/L (3.5-5.1)
[2021-06-30] MEDS: MULTIVITAMINS/MINERALS TAB PO SCH (09:36)
[2021-06-30] MEDS: POTASSIUM CHLORIDE 10MEQ EA PO SCH ×2 (09:37→16:27)
[2021-06-30] MEDS: LOSARTAN POTASSIUM 100 MG TAB PO SCH (09:37)
[2021-06-30] MEDS: FUROSEMIDE 20 MG TAB PO SCH ×2 (09:37→16:27)
[2021-06-30] MEDS: ASPIRIN 81 MG CHEW TAB PO SCH (09:38)
[2021-06-30] MEDS: METHYLPREDNISOLONE SOD SUCC 40 MG/ML VIAL 1ML IV SCH ×2 (09:38→20:13)
[2021-06-30] MEDS: GUAIFENESIN 200 MG/10 ML UDC PO PRN ×2 (13:13→20:13)
[2021-06-30] MEDS ORDERED: ENOXAPARIN SOD INJ 40 MG/0.4 ML SYR SC SCH (17:00)
[2021-06-30] MEDS: ACETAMINOPHEN/CODEINE 300MG - 30MG TAB PO PRN (20:12)
[2021-07-01] VITALS (8 sets, daily range): BP systolic 123–149; BP diastolic 62–70
[2021-07-01] MEDS: ALPRAZOLAM 0.25 MG TAB PO PRN ×2 (02:40→22:27)
[2021-07-01] MEDS: Doxycycline IV 100 MG in SODIUM CHLORIDE 0.9% 100 ML IV SCH ×2 (02:40→14:16)
[2021-07-01] MEDS: GUAIFENESIN 200 MG/10 ML UDC PO PRN ×2 (02:40→11:45)
[2021-07-01] MEDS: IPRATROPIUM BROMIDE 0.02% 2.5 ML NEB NEB SCH ×6 (02:40→19:00)
[2021-07-01] MEDS: SODIUM CHLORIDE 0.9% 1000ML 1,000 ML IV SCH (06:15)
[2021-07-01] MEDS: METHYLPREDNISOLONE SOD SUCC 40 MG/ML VIAL 1ML IV SCH ×2 (08:32→21:12)
[2021-07-01] MEDS: ASPIRIN 81 MG CHEW TAB PO SCH (08:32)
[2021-07-01] MEDS: CEFTRIAXONE 1 GM in SODIUM CHLORIDE 0.9% 50ML 50 ML IV SCH (08:32)
[2021-07-01] MEDS: MULTIVITAMINS/MINERALS TAB PO SCH (08:37)
[2021-07-01] MEDS: POTASSIUM CHLORIDE 10MEQ EA PO SCH ×2 (08:37→16:27)
[2021-07-01] MEDS: FUROSEMIDE 20 MG TAB PO SCH (08:37)
[2021-07-01] MEDS: LOSARTAN POTASSIUM 100 MG TAB PO SCH (08:37)
[2021-07-01] MEDS ORDERED: Vancomycin IV 1 GM in SODIUM CHLORIDE 0.9% 250ML 250 ML IV ONE (10:45)
[2021-07-01] MEDS: ALBUTEROL SULF 0.083% NEB SOLN 3 ML NEB NEB SCH ×2 (13:27→18:50)
[2021-07-01 16:41] LABS: INR 0.97; PROTHROMBIN TIME 13.6 seconds (11.9-14.5)
[2021-07-01] MEDS: BUDESONIDE/FORMOTEROL 160/4.5MCG INHALER INH SCH (18:50)
[2021-07-01] MEDS: ACETAMINOPHEN/CODEINE 300MG - 30MG TAB PO PRN (22:27)
[2021-07-02] VITALS (9 sets, daily range): BP systolic 120–157; BP diastolic 50–78
[2021-07-02] MEDS: IPRATROPIUM BROMIDE 0.02% 2.5 ML NEB NEB SCH ×5 (01:00→18:55)
[2021-07-02] MEDS: Doxycycline IV 100 MG in SODIUM CHLORIDE 0.9% 100 ML IV SCH ×2 (02:15→13:30)
[2021-07-02] MEDS: ALBUTEROL SULF 0.083% NEB SOLN 3 ML NEB NEB SCH ×4 (03:10→18:55)
[2021-07-02] MEDS: BUDESONIDE/FORMOTEROL 160/4.5MCG INHALER INH SCH ×2 (07:03→18:49)
[2021-07-02] MEDS: CEFTRIAXONE 1 GM in SODIUM CHLORIDE 0.9% 50ML 50 ML IV SCH (08:51)
[2021-07-02] MEDS: METHYLPREDNISOLONE SOD SUCC 40 MG/ML VIAL 1ML IV SCH ×2 (08:51→20:37)
[2021-07-02] MEDS: MULTIVITAMINS/MINERALS TAB PO SCH (08:52)
[2021-07-02] MEDS: POTASSIUM CHLORIDE 10MEQ EA PO SCH ×2 (08:52→16:13)
[2021-07-02] MEDS: LOSARTAN POTASSIUM 100 MG TAB PO SCH (09:17)
[2021-07-02] MEDS: ALPRAZOLAM 0.25 MG TAB PO PRN ×2 (09:21→23:10)
[2021-07-02] MEDS: ACETAMINOPHEN/CODEINE 300MG - 30MG TAB PO PRN ×2 (09:21→23:10)
[2021-07-03] VITALS (9 sets, daily range): BP systolic 0–155; BP diastolic 51–66
[2021-07-03] MEDS: ALBUTEROL SULF 0.083% NEB SOLN 3 ML NEB NEB SCH ×4 (00:28→19:11)
[2021-07-03] MEDS: IPRATROPIUM BROMIDE 0.02% 2.5 ML NEB NEB SCH ×4 (00:28→19:08)
[2021-07-03] MEDS: Doxycycline IV 100 MG in SODIUM CHLORIDE 0.9% 100 ML IV SCH (02:15)
[2021-07-03 05:32] LABS: BASOPHILS % 0.2 % (0.0-1.0); EOSINOPHILS # (AUTO) 0.1 (0.0-0.4); EOSINOPHILS % 0.9 % (0.0-6.0); HEMATOCRIT 37.5 % (34.2-44.1); HEMOGLOBIN 11.9 g/dL (12.0-16.0); LYMPHOCYTES # (AUTO) 3.1 (1.0-3.2); LYMPHOCYTES % 23.6 % (18.0-39.1); MEAN CORPUSCULAR HEMOGLOBIN 30.5 pg (28-32); MEAN CORPUSCULAR HGB CONC 31.7 g/dL (31-35); MEAN CORPUSCULAR VOLUME 96.2 fL (81-99); MONOCYTES # (AUTO) 1.4 (0.2-0.8); MONOCYTES % 11.1 % (4.4-11.3); NEUTROPHILS # (AUTO) 8.3 (2.1-6.9); NEUTROPHILS % 63.7 % (38.7-80.0); PLATELET COUNT 290 x10e3/uL (140-360); RED CELL DISTRIBUTION WIDTH 12.6 % (11.7-14.4)
[2021-07-03 06:42] LABS: ALBUMIN/GLOBULIN RATIO 1.2 (0.8-2.0); ANION GAP 12.9 mmol/L (8-16); CALCIUM 8.8 mg/dL (8.4-10.2); CREATININE, SERUM 0.68 mg/dL (0.57-1.11); MAGNESIUM 1.9 MG/DL (1.3-2.1); POTASSIUM 3.9 mmol/L (3.5-5.1)
[2021-07-03] MEDS: BUDESONIDE/FORMOTEROL 160/4.5MCG INHALER INH SCH ×2 (07:42→19:08)
[2021-07-03] MEDS: LOSARTAN POTASSIUM 100 MG TAB PO SCH (09:00)
[2021-07-03] MEDS: MULTIVITAMINS/MINERALS TAB PO SCH (09:00)
[2021-07-03] MEDS: CEFTRIAXONE 1 GM in SODIUM CHLORIDE 0.9% 50ML 50 ML IV SCH (09:00)
[2021-07-03] MEDS: METHYLPREDNISOLONE SOD SUCC 40 MG/ML VIAL 1ML IV SCH ×2 (09:00→20:48)
[2021-07-03] MEDS: POTASSIUM CHLORIDE 10MEQ EA PO SCH ×2 (09:00→17:00)
[2021-07-03] MEDS: ALPRAZOLAM 0.25 MG TAB PO PRN (13:37)
[2021-07-03] MEDS: DOXYCYCLINE HYCLATE 100 MG in SODIUM CHLORIDE 0.9% 100 ML IV SCH (15:00)
[2021-07-03] MEDS: ACETAMINOPHEN/CODEINE 300MG - 30MG TAB PO PRN (21:03)
[2021-07-04] VITALS (8 sets, daily range): BP systolic 132–165; BP diastolic 50–65
[2021-07-04] MEDS: IPRATROPIUM BROMIDE 0.02% 2.5 ML NEB NEB SCH ×4 (01:22→19:02)
[2021-07-04] MEDS: ALBUTEROL SULF 0.083% NEB SOLN 3 ML NEB NEB SCH ×7 (01:22→22:36)
[2021-07-04] MEDS: DOXYCYCLINE HYCLATE 100 MG in SODIUM CHLORIDE 0.9% 100 ML IV SCH ×2 (01:27→13:53)
[2021-07-04 05:20] LABS: HEMOGLOBIN 11.8 g/dL (12.0-16.0); LYMPHOCYTES % 9.8 % (18.0-39.1); MEAN CORPUSCULAR HEMOGLOBIN 30.4 pg (28-32); MEAN CORPUSCULAR HGB CONC 31.1 g/dL (31-35); MEAN CORPUSCULAR VOLUME 97.9 fL (81-99); MONOCYTES # (AUTO) 0.4 (0.2-0.8); MONOCYTES % 3.8 % (4.4-11.3); NEUTROPHILS % 86.1 % (38.7-80.0); PLATELET COUNT 277 x10e3/uL (140-360); RED BLOOD COUNT 3.88 x10e6/uL (3.6-5.1); RED CELL DISTRIBUTION WIDTH 12.6 % (11.7-14.4)
[2021-07-04 05:39] LABS: ALBUMIN 2.9 g/dL (3.5-5.0); ALBUMIN/GLOBULIN RATIO 1.1 (0.8-2.0); ANION GAP 9.8 mmol/L (8-16); CALCIUM 8.9 mg/dL (8.4-10.2); CREATININE, SERUM 0.66 mg/dL (0.57-1.11); MAGNESIUM 1.9 MG/DL (1.3-2.1); POTASSIUM 4.8 mmol/L (3.5-5.1)
[2021-07-04] MEDS: BUDESONIDE/FORMOTEROL 160/4.5MCG INHALER INH SCH ×2 (06:50→18:22)
[2021-07-04] MEDS: METHYLPREDNISOLONE SOD SUCC 40 MG/ML VIAL 1ML IV SCH ×2 (08:37→21:16)
[2021-07-04] MEDS: CEFTRIAXONE 1 GM in SODIUM CHLORIDE 0.9% 50ML 50 ML IV SCH (08:37)
[2021-07-04] MEDS: POTASSIUM CHLORIDE 10MEQ EA PO SCH ×2 (08:38→16:17)
[2021-07-04] MEDS: MULTIVITAMINS/MINERALS TAB PO SCH (08:38)
[2021-07-04] MEDS: FLUCONAZOLE 100 MG TAB PO SCH (08:38)
[2021-07-04] MEDS: LOSARTAN POTASSIUM 100 MG TAB PO SCH (08:39)
[2021-07-04] MEDS: ACETAMINOPHEN/CODEINE 300MG - 30MG TAB PO PRN (21:21)
[2021-07-04] MEDS: ALPRAZOLAM 0.25 MG TAB PO PRN (21:22)
[2021-07-05] VITALS (7 sets, daily range): BP systolic 126–150; BP diastolic 53–63
[2021-07-05] MEDS: DOXYCYCLINE HYCLATE 100 MG in SODIUM CHLORIDE 0.9% 100 ML IV SCH (00:48)
[2021-07-05] MEDS: IPRATROPIUM BROMIDE 0.02% 2.5 ML NEB NEB SCH ×4 (02:30→19:35)
[2021-07-05] MEDS: ALBUTEROL SULF 0.083% NEB SOLN 3 ML NEB NEB SCH ×6 (02:30→23:25)
[2021-07-05 05:29] LABS: BASOPHILS % 0.1 % (0.0-1.0); HEMATOCRIT 38.1 % (34.2-44.1); HEMOGLOBIN 11.5 g/dL (12.0-16.0); LYMPHOCYTES # (AUTO) 0.7 (1.0-3.2); LYMPHOCYTES % 7.7 % (18.0-39.1); MEAN CORPUSCULAR HEMOGLOBIN 30.6 pg (28-32); MEAN CORPUSCULAR HGB CONC 30.2 g/dL (31-35); MEAN CORPUSCULAR VOLUME 101.3 fL (81-99); MONOCYTES # (AUTO) 0.3 (0.2-0.8); MONOCYTES % 2.9 % (4.4-11.3); NEUTROPHILS # (AUTO) 8.6 (2.1-6.9); NEUTROPHILS % 88.9 % (38.7-80.0); PLATELET COUNT 259 x10e3/uL (140-360); RED BLOOD COUNT 3.76 x10e6/uL (3.6-5.1); RED CELL DISTRIBUTION WIDTH 12.9 % (11.7-14.4)
[2021-07-05 05:50] LABS: ALBUMIN 2.9 g/dL (3.5-5.0); ALBUMIN/GLOBULIN RATIO 1.1 (0.8-2.0); ANION GAP 12.7 mmol/L (8-16); CALCIUM 8.8 mg/dL (8.4-10.2); CREATININE, SERUM 0.71 mg/dL (0.57-1.11); MAGNESIUM 1.9 MG/DL (1.3-2.1); POTASSIUM 4.7 mmol/L (3.5-5.1)
[2021-07-05] MEDS: BUDESONIDE/FORMOTEROL 160/4.5MCG INHALER INH SCH ×2 (06:30→17:20)
[2021-07-05] MEDS: METHYLPREDNISOLONE SOD SUCC 40 MG/ML VIAL 1ML IV SCH ×2 (08:05→21:24)
[2021-07-05] MEDS: CEFTRIAXONE 1 GM in SODIUM CHLORIDE 0.9% 50ML 50 ML IV SCH (08:05)
[2021-07-05] MEDS: POTASSIUM CHLORIDE 10MEQ EA PO SCH ×2 (08:06→15:24)
[2021-07-05] MEDS: MULTIVITAMINS/MINERALS TAB PO SCH (08:06)
[2021-07-05] MEDS: LOSARTAN POTASSIUM 100 MG TAB PO SCH (08:06)
[2021-07-05] MEDS: FLUCONAZOLE 100 MG TAB PO SCH (08:06)
[2021-07-05] MEDS: DOXYCYCLINE HYCLATE TABLET 100 MG TAB PO SCH (15:23)
[2021-07-05] MEDS: ALPRAZOLAM 0.25 MG TAB PO PRN (21:25)
[2021-07-05] MEDS: ACETAMINOPHEN/CODEINE 300MG - 30MG TAB PO PRN (21:25)
[2021-07-06] VITALS (8 sets, daily range): BP systolic 124–168; BP diastolic 57–71
[2021-07-06] MEDS: DOXYCYCLINE HYCLATE TABLET 100 MG TAB PO SCH ×2 (02:55→14:28)
[2021-07-06] MEDS: ALBUTEROL SULF 0.083% NEB SOLN 3 ML NEB NEB SCH ×6 (03:00→23:50)
[2021-07-06] MEDS: IPRATROPIUM BROMIDE 0.02% 2.5 ML NEB NEB SCH ×5 (03:00→23:50)
[2021-07-06] MEDS: BUDESONIDE/FORMOTEROL 160/4.5MCG INHALER INH SCH ×2 (06:58→17:55)
[2021-07-06] MEDS: FLUCONAZOLE 100 MG TAB PO SCH (08:50)
[2021-07-06] MEDS: METHYLPREDNISOLONE SOD SUCC 40 MG/ML VIAL 1ML IV SCH ×2 (08:50→21:26)
[2021-07-06] MEDS: LOSARTAN POTASSIUM 100 MG TAB PO SCH (08:50)
[2021-07-06] MEDS: CEFTRIAXONE 1 GM in SODIUM CHLORIDE 0.9% 50ML 50 ML IV SCH (08:50)
[2021-07-06] MEDS: POTASSIUM CHLORIDE 10MEQ EA PO SCH ×2 (08:51→14:28)
[2021-07-06] MEDS: MULTIVITAMINS/MINERALS TAB PO SCH (08:51)
[2021-07-06] MEDS ORDERED: LOPERAMIDE HCL 2 MG CAP PO ONE (15:00)
[2021-07-06] MEDS: ACETAMINOPHEN/CODEINE 300MG - 30MG TAB PO PRN (21:26)
[2021-07-06] MEDS: METRONIDAZOLE 500 MG TAB PO SCH (21:26)
[2021-07-06] MEDS: ALPRAZOLAM 0.25 MG TAB PO PRN (21:26)
[2021-07-07] VITALS (8 sets, daily range): BP systolic 115–166; BP diastolic 45–67
[2021-07-07] MEDS: DOXYCYCLINE HYCLATE TABLET 100 MG TAB PO SCH ×2 (01:13→14:15)
[2021-07-07] MEDS: ALBUTEROL SULF 0.083% NEB SOLN 3 ML NEB NEB SCH ×7 (02:40→23:50)
[2021-07-07] MEDS: METRONIDAZOLE 500 MG TAB PO SCH ×3 (05:18→21:06)
[2021-07-07] MEDS: IPRATROPIUM BROMIDE 0.02% 2.5 ML NEB NEB SCH ×3 (07:03→19:38)
[2021-07-07] MEDS: BUDESONIDE/FORMOTEROL 160/4.5MCG INHALER INH SCH ×2 (07:03→19:01)
[2021-07-07] MEDS ORDERED: MIDAZOLAM HCL 2 MG/2 ML VIAL ONE (09:20)
[2021-07-07] MEDS ORDERED: FENTANYL CITRATE/PF 100MCG/2 ML INJ ONE (09:21)
[2021-07-07] MEDS ORDERED: LIDOCAINE HCL 1% LOCAL INJ 20 ML VIAL ONE (09:49)
[2021-07-07] MEDS ORDERED: ONDANSETRON HCL 4 MG ORAL DISINTEGRATING TAB PO PRN (10:00)
[2021-07-07] MEDS: CEFTRIAXONE 1 GM in SODIUM CHLORIDE 0.9% 50ML 50 ML IV SCH (12:15)
[2021-07-07] MEDS: MULTIVITAMINS/MINERALS TAB PO SCH (12:15)
[2021-07-07] MEDS: FLUCONAZOLE 100 MG TAB PO SCH (12:15)
[2021-07-07] MEDS: METHYLPREDNISOLONE SOD SUCC 40 MG/ML VIAL 1ML IV SCH ×2 (12:15→21:06)
[2021-07-07] MEDS: POTASSIUM CHLORIDE 10MEQ EA PO SCH ×2 (12:15→16:47)
[2021-07-07] MEDS: LOSARTAN POTASSIUM 100 MG TAB PO SCH (12:15)
[2021-07-07] MEDS: LOPERAMIDE HCL 2 MG CAP PO PRN (21:02)
[2021-07-07] MEDS: ACETAMINOPHEN/CODEINE 300MG - 30MG TAB PO PRN (23:03)
[2021-07-07] MEDS: ALPRAZOLAM 0.25 MG TAB PO PRN (23:04)
[2021-07-08] VITALS (8 sets, daily range): BP systolic 128–157; BP diastolic 57–68
[2021-07-08] MEDS: DOXYCYCLINE HYCLATE TABLET 100 MG TAB PO SCH ×2 (02:40→14:00)
[2021-07-08] MEDS: IPRATROPIUM BROMIDE 0.02% 2.5 ML NEB NEB SCH ×5 (02:50→23:50)
[2021-07-08] MEDS: ALBUTEROL SULF 0.083% NEB SOLN 3 ML NEB NEB SCH ×5 (02:50→19:35)
[2021-07-08] MEDS: METRONIDAZOLE 500 MG TAB PO SCH ×3 (05:32→21:49)
[2021-07-08 06:03] LABS: BASOPHILS % 0.2 % (0.0-1.0); HEMATOCRIT 38.7 % (34.2-44.1); HEMOGLOBIN 12.2 g/dL (12.0-16.0); LYMPHOCYTES # (AUTO) 0.8 (1.0-3.2); LYMPHOCYTES % 7.6 % (18.0-39.1); MEAN CORPUSCULAR HEMOGLOBIN 30.2 pg (28-32); MEAN CORPUSCULAR HGB CONC 31.5 g/dL (31-35); MEAN CORPUSCULAR VOLUME 95.8 fL (81-99); MONOCYTES # (AUTO) 0.7 (0.2-0.8); MONOCYTES % 6.1 % (4.4-11.3); NEUTROPHILS % 85.1 % (38.7-80.0); PLATELET COUNT 281 x10e3/uL (140-360); RED BLOOD COUNT 4.04 x10e6/uL (3.6-5.1); RED CELL DISTRIBUTION WIDTH 12.8 % (11.7-14.4)
[2021-07-08 06:24] LABS: ALBUMIN 2.9 g/dL (3.5-5.0); ALBUMIN/GLOBULIN RATIO 1.3 (0.8-2.0); ANION GAP 9.9 mmol/L (8-16); CALCIUM 9.1 mg/dL (8.4-10.2); CREATININE, SERUM 0.7 mg/dL (0.57-1.11); MAGNESIUM 1.9 MG/DL (1.3-2.1); POTASSIUM 4.9 mmol/L (3.5-5.1)
[2021-07-08] MEDS: MULTIVITAMINS/MINERALS TAB PO SCH (09:00)
[2021-07-08] MEDS: METHYLPREDNISOLONE SOD SUCC 40 MG/ML VIAL 1ML IV SCH (09:00)
[2021-07-08] MEDS: LOSARTAN POTASSIUM 100 MG TAB PO SCH (09:00)
[2021-07-08] MEDS: FLUCONAZOLE 100 MG TAB PO SCH (09:00)
[2021-07-08] MEDS: POTASSIUM CHLORIDE 10MEQ EA PO SCH ×2 (09:00→16:16)
[2021-07-08] MEDS: CEFTRIAXONE 1 GM in SODIUM CHLORIDE 0.9% 50ML 50 ML IV SCH (09:40)
[2021-07-08] MEDS: BUDESONIDE/FORMOTEROL 160/4.5MCG INHALER INH SCH (19:35)
[2021-07-08] MEDS: ACETAMINOPHEN/CODEINE 300MG - 30MG TAB PO PRN (21:55)
[2021-07-08] MEDS: ALPRAZOLAM 0.25 MG TAB PO PRN (21:55)
[2021-07-08] MEDS: LOPERAMIDE HCL 2 MG CAP PO PRN (22:00)
[2021-07-09] MEDS: DOXYCYCLINE HYCLATE TABLET 100 MG TAB PO SCH ×2 (01:37→13:13)
[2021-07-09] MEDS: ALBUTEROL SULF 0.083% NEB SOLN 3 ML NEB NEB SCH ×6 (03:25→22:00)
[2021-07-09 04:00] VITALS: BP 132/59
[2021-07-09] MEDS: METRONIDAZOLE 500 MG TAB PO SCH ×3 (05:21→22:29)
[2021-07-09] MEDS: IPRATROPIUM BROMIDE 0.02% 2.5 ML NEB NEB SCH ×3 (06:30→18:20)
[2021-07-09] MEDS: BUDESONIDE/FORMOTEROL 160/4.5MCG INHALER INH SCH ×2 (06:53→18:20)
[2021-07-09 08:24] VITALS: BP 131/62
[2021-07-09] MEDS ORDERED: FLUCONAZOLE 100 MG TAB PO SCH (09:00)
[2021-07-09] MEDS: CEFTRIAXONE 1 GM in SODIUM CHLORIDE 0.9% 50ML 50 ML IV SCH (10:19)
[2021-07-09] MEDS: LOSARTAN POTASSIUM 100 MG TAB PO SCH (10:22)
[2021-07-09] MEDS: FLUCONAZOLE 100 MG TAB PO SCH (10:23)
[2021-07-09] MEDS: MULTIVITAMINS/MINERALS TAB PO SCH (10:23)
[2021-07-09] MEDS: POTASSIUM CHLORIDE 10MEQ EA PO SCH ×2 (10:23→17:00)
[2021-07-09] MEDS ORDERED: LOPERAMIDE HCL 2 MG CAP PO ONE (11:30)
[2021-07-09 20:00] VITALS: BP 127/63
[2021-07-09] MEDS: ACETAMINOPHEN/CODEINE 300MG - 30MG TAB PO PRN (20:38)
[2021-07-09] MEDS: ALPRAZOLAM 0.25 MG TAB PO PRN (20:38)
[2021-07-10] VITALS: BP 119/51
[2021-07-10] MEDS: IPRATROPIUM BROMIDE 0.02% 2.5 ML NEB NEB SCH ×4 (00:46→19:44)
[2021-07-10] MEDS: DOXYCYCLINE HYCLATE TABLET 100 MG TAB PO SCH (02:27)
[2021-07-10] MEDS: ALBUTEROL SULF 0.083% NEB SOLN 3 ML NEB NEB SCH ×6 (02:35→20:10)
[2021-07-10 04:00] VITALS: BP 114/53
[2021-07-10] MEDS ORDERED: ONDANSETRON HCL INJ 2MG/ML 2ML 2 MG/ML VIAL IV PRN (04:45)
[2021-07-10] MEDS: METRONIDAZOLE 500 MG TAB PO SCH ×3 (05:55→21:14)
[2021-07-10] MEDS: FLUCONAZOLE 100 MG TAB PO SCH (08:22)
[2021-07-10] MEDS: POTASSIUM CHLORIDE 10MEQ EA PO SCH ×2 (08:22→15:55)
[2021-07-10] MEDS: MULTIVITAMINS/MINERALS TAB PO SCH (08:22)
[2021-07-10] MEDS: LOSARTAN POTASSIUM 100 MG TAB PO SCH (08:22)
[2021-07-10 09:19] VITALS: BP 128/47
[2021-07-10 10:48] VITALS: BP 128/47
[2021-07-10] MEDS ORDERED: BENZONATATE 100 MG CAP PO PRN (12:00)
[2021-07-10] MEDS: BUDESONIDE/FORMOTEROL 160/4.5MCG INHALER INH SCH ×2 (12:02→20:15)
[2021-07-10] MEDS: LOPERAMIDE HCL 2 MG CAP PO PRN ×2 (12:16→18:47)
[2021-07-10 16:40] VITALS: BP 132/58
[2021-07-10] MEDS: ACETAMINOPHEN/CODEINE 300MG - 30MG TAB PO PRN (18:48)
[2021-07-10 20:00] VITALS: BP 139/56
[2021-07-11] VITALS (8 sets, daily range): BP systolic 106–133; BP diastolic 49–58
[2021-07-11] MEDS: IPRATROPIUM BROMIDE 0.02% 2.5 ML NEB NEB SCH ×4 (01:15→18:55)
[2021-07-11] MEDS: ALBUTEROL SULF 0.083% NEB SOLN 3 ML NEB NEB SCH ×6 (02:31→22:16)
[2021-07-11] MEDS: METRONIDAZOLE 500 MG TAB PO SCH ×3 (05:55→21:16)
[2021-07-11 06:15] LABS: BASOPHILS % 0.2 % (0.0-1.0); EOSINOPHILS # (AUTO) 0.3 (0.0-0.4); EOSINOPHILS % 2.5 % (0.0-6.0); HEMATOCRIT 37.8 % (34.2-44.1); HEMOGLOBIN 11.3 g/dL (12.0-16.0); LYMPHOCYTES # (AUTO) 2.4 (1.0-3.2); LYMPHOCYTES % 17.9 % (18.0-39.1); MEAN CORPUSCULAR HEMOGLOBIN 29.8 pg (28-32); MEAN CORPUSCULAR HGB CONC 29.9 g/dL (31-35); MEAN CORPUSCULAR VOLUME 99.7 fL (81-99); MONOCYTES # (AUTO) 1.5 (0.2-0.8); MONOCYTES % 11.5 % (4.4-11.3); NEUTROPHILS % 67.2 % (38.7-80.0); PLATELET COUNT 202 x10e3/uL (140-360); RED BLOOD COUNT 3.79 x10e6/uL (3.6-5.1); RED CELL DISTRIBUTION WIDTH 13.1 % (11.7-14.4)
[2021-07-11 06:46] LABS: ALBUMIN 2.5 g/dL (3.5-5.0); ANION GAP 11.3 mmol/L (8-16); CALCIUM 8.5 mg/dL (8.4-10.2); CREATININE, SERUM 0.72 mg/dL (0.57-1.11); MAGNESIUM 1.9 MG/DL (1.3-2.1); POTASSIUM 4.3 mmol/L (3.5-5.1)
[2021-07-11] MEDS: LOSARTAN POTASSIUM 100 MG TAB PO SCH (09:00)
[2021-07-11] MEDS: MULTIVITAMINS/MINERALS TAB PO SCH (09:57)
[2021-07-11] MEDS: DICYCLOMINE HCL 10 MG CAP PO SCH ×3 (09:57→20:19)
[2021-07-11] MEDS: POTASSIUM CHLORIDE 10MEQ EA PO SCH ×2 (09:57→15:02)
[2021-07-11] MEDS: GUAIFENESIN/CODEINE 5 ML LIQD PO PRN (10:05)
[2021-07-11] MEDS: BUDESONIDE/FORMOTEROL 160/4.5MCG INHALER INH SCH ×2 (10:30→19:55)
[2021-07-11] MEDS: LOPERAMIDE HCL 2 MG CAP PO PRN (15:36)
[2021-07-11] MEDS: ACETAMINOPHEN/CODEINE 300MG - 30MG TAB PO PRN (20:20)
[2021-07-11] MEDS: ALPRAZOLAM 0.25 MG TAB PO PRN (21:16)
[2021-07-12] VITALS (8 sets, daily range): BP systolic 108–128; BP diastolic 47–59
[2021-07-12] MEDS: ALBUTEROL SULF 0.083% NEB SOLN 3 ML NEB NEB SCH ×6 (00:15→19:02)
[2021-07-12] MEDS: IPRATROPIUM BROMIDE 0.02% 2.5 ML NEB NEB SCH ×4 (01:08→13:06)
[2021-07-12] MEDS: METRONIDAZOLE 500 MG TAB PO SCH ×3 (05:36→22:00)
[2021-07-12] MEDS: BUDESONIDE/FORMOTEROL 160/4.5MCG INHALER INH SCH ×2 (07:04→19:02)
[2021-07-12] MEDS: DICYCLOMINE HCL 10 MG CAP PO SCH ×3 (08:19→20:15)
[2021-07-12] MEDS: LOSARTAN POTASSIUM 100 MG TAB PO SCH (08:20)
[2021-07-12] MEDS: POTASSIUM CHLORIDE 10MEQ EA PO SCH ×2 (08:20→16:28)
[2021-07-12] MEDS: MULTIVITAMINS/MINERALS TAB PO SCH (08:20)
[2021-07-12] MEDS: ACETAMINOPHEN/CODEINE 300MG - 30MG TAB PO PRN ×2 (12:06→20:20)
[2021-07-12] MEDS ORDERED: ONDANSETRON HCL 4 MG ORAL DISINTEGRATING TAB PO PRN (15:30)
[2021-07-12] MEDS: ALPRAZOLAM 0.25 MG TAB PO PRN (20:20)
[2021-07-12] MEDS: GUAIFENESIN/CODEINE 5 ML LIQD PO PRN (20:20)
[2021-07-13] VITALS (9 sets, daily range): BP systolic 109–125; BP diastolic 40–61
[2021-07-13] MEDS: IPRATROPIUM BROMIDE 0.02% 2.5 ML NEB NEB SCH ×4 (00:15→18:42)
[2021-07-13] MEDS: ALBUTEROL SULF 0.083% NEB SOLN 3 ML NEB NEB SCH ×6 (06:00→22:00)
[2021-07-13] MEDS: ACETAMINOPHEN/CODEINE 300MG - 30MG TAB PO PRN ×2 (06:16→21:10)
[2021-07-13] MEDS: METRONIDAZOLE 500 MG TAB PO SCH ×2 (06:16→15:30)
[2021-07-13] MEDS: BUDESONIDE/FORMOTEROL 160/4.5MCG INHALER INH SCH ×2 (07:00→19:05)
[2021-07-13] MEDS: LOSARTAN POTASSIUM 100 MG TAB PO SCH (08:41)
[2021-07-13] MEDS: DICYCLOMINE HCL 10 MG CAP PO SCH ×3 (08:41→21:10)
[2021-07-13] MEDS: POTASSIUM CHLORIDE 10MEQ EA PO SCH ×2 (08:42→15:56)
[2021-07-13] MEDS: MULTIVITAMINS/MINERALS TAB PO SCH (08:42)
[2021-07-13] MEDS ORDERED: ZINC OXIDE / BALSAM PERU 30 GM TUBE TOP SCH (13:15)
[2021-07-13] MEDS: ALPRAZOLAM 0.25 MG TAB PO PRN (21:10)
[2021-07-13] MEDS: GUAIFENESIN/CODEINE 5 ML LIQD PO PRN (21:10)
[2021-07-14] VITALS (8 sets, daily range): BP systolic 112–124; BP diastolic 47–54
[2021-07-14] MEDS: ALBUTEROL SULF 0.083% NEB SOLN 3 ML NEB NEB SCH ×6 (01:10→22:00)
[2021-07-14] MEDS: IPRATROPIUM BROMIDE 0.02% 2.5 ML NEB NEB SCH ×4 (01:10→18:33)
[2021-07-14] MEDS: BUDESONIDE/FORMOTEROL 160/4.5MCG INHALER INH SCH ×2 (06:34→18:50)
[2021-07-14] MEDS: DICYCLOMINE HCL 10 MG CAP PO SCH ×3 (10:40→20:50)
[2021-07-14] MEDS: LOSARTAN POTASSIUM 100 MG TAB PO SCH (10:40)
[2021-07-14] MEDS: MULTIVITAMINS/MINERALS TAB PO SCH (10:41)
[2021-07-14] MEDS: POTASSIUM CHLORIDE 10MEQ EA PO SCH ×2 (10:41→15:34)
[2021-07-14] MEDS: ACETAMINOPHEN/CODEINE 300MG - 30MG TAB PO PRN (15:34)
[2021-07-14] MEDS: ALPRAZOLAM 0.25 MG TAB PO PRN (20:50)
[2021-07-15] VITALS (8 sets, daily range): BP systolic 101–137; BP diastolic 47–58
[2021-07-15] MEDS: IPRATROPIUM BROMIDE 0.02% 2.5 ML NEB NEB SCH ×4 (01:05→18:40)
[2021-07-15] MEDS: ALBUTEROL SULF 0.083% NEB SOLN 3 ML NEB NEB SCH ×6 (01:05→22:00)
[2021-07-15] MEDS: ACETAMINOPHEN 325 MG TAB PEG PRN ×2 (02:44→23:09)
[2021-07-15] MEDS: BUDESONIDE/FORMOTEROL 160/4.5MCG INHALER INH SCH ×2 (06:53→19:26)
[2021-07-15] MEDS: LOSARTAN POTASSIUM 100 MG TAB PO SCH (07:43)
[2021-07-15] MEDS: MULTIVITAMINS/MINERALS TAB PO SCH (08:35)
[2021-07-15] MEDS: POTASSIUM CHLORIDE 10MEQ EA PO SCH ×2 (08:35→16:01)
[2021-07-15] MEDS: DICYCLOMINE HCL 10 MG CAP PO SCH ×3 (08:35→20:09)
[2021-07-15] MEDS: GUAIFENESIN/CODEINE 5 ML LIQD PO PRN (23:09)
[2021-07-16] VITALS (8 sets, daily range): BP systolic 120–140; BP diastolic 42–58
[2021-07-16] MEDS: ALBUTEROL SULF 0.083% NEB SOLN 3 ML NEB NEB SCH ×2 (00:55→06:50)
[2021-07-16] MEDS: IPRATROPIUM BROMIDE 0.02% 2.5 ML NEB NEB SCH ×2 (00:55→06:50)
[2021-07-16] MEDS: BUDESONIDE/FORMOTEROL 160/4.5MCG INHALER INH SCH ×2 (06:50→19:20)
[2021-07-16] MEDS: GUAIFENESIN/CODEINE 5 ML LIQD PO PRN ×2 (07:06→15:53)
[2021-07-16] MEDS: DICYCLOMINE HCL 10 MG CAP PO SCH ×3 (08:23→22:04)
[2021-07-16] MEDS: POTASSIUM CHLORIDE 10MEQ EA PO SCH ×2 (08:24→15:51)
[2021-07-16] MEDS: LOSARTAN POTASSIUM 100 MG TAB PO SCH (08:24)
[2021-07-16] MEDS: MULTIVITAMINS/MINERALS TAB PO SCH (08:32)
[2021-07-16] MEDS: ALBUTEROL/IPRATROPIUM 3 ML NEB NEB SCH ×3 (13:15→23:10)
[2021-07-16] MEDS: ACETAMINOPHEN 325 MG TAB PEG PRN ×2 (15:52→23:59)
[2021-07-16] MEDS: LOPERAMIDE HCL 2 MG CAP PO PRN (22:04)
[2021-07-17] VITALS (9 sets, daily range): BP systolic 123–135; BP diastolic 49–64
[2021-07-17] MEDS: ALBUTEROL/IPRATROPIUM 3 ML NEB NEB SCH ×3 (07:25→19:05)
[2021-07-17 07:28] LABS: BASOPHILS % 0.4 % (0.0-1.0); EOSINOPHILS # (AUTO) 0.2 (0.0-0.4); EOSINOPHILS % 2.1 % (0.0-6.0); HEMATOCRIT 36.4 % (34.2-44.1); LYMPHOCYTES # (AUTO) 1.8 (1.0-3.2); LYMPHOCYTES % 19.8 % (18.0-39.1); MEAN CORPUSCULAR HEMOGLOBIN 29.4 pg (28-32); MEAN CORPUSCULAR HGB CONC 30.2 g/dL (31-35); MEAN CORPUSCULAR VOLUME 97.3 fL (81-99); MONOCYTES % 11.3 % (4.4-11.3); NEUTROPHILS # (AUTO) 5.9 (2.1-6.9); PLATELET COUNT 201 x10e3/uL (140-360); RED BLOOD COUNT 3.74 x10e6/uL (3.6-5.1); RED CELL DISTRIBUTION WIDTH 13.3 % (11.7-14.4)
[2021-07-17] MEDS: BUDESONIDE/FORMOTEROL 160/4.5MCG INHALER INH SCH ×2 (07:35→19:05)
[2021-07-17 07:50] LABS: ALBUMIN 2.7 g/dL (3.5-5.0); ALBUMIN/GLOBULIN RATIO 0.9 (0.8-2.0); ANION GAP 11.4 mmol/L (8-16); CALCIUM 8.7 mg/dL (8.4-10.2); CREATININE, SERUM 0.67 mg/dL (0.57-1.11); POTASSIUM 4.4 mmol/L (3.5-5.1)
[2021-07-17] MEDS: MULTIVITAMINS/MINERALS TAB PO SCH (08:39)
[2021-07-17] MEDS: DICYCLOMINE HCL 10 MG CAP PO SCH ×3 (08:39→20:46)
[2021-07-17] MEDS: POTASSIUM CHLORIDE 10MEQ EA PO SCH ×2 (08:39→17:01)
[2021-07-17] MEDS: LOSARTAN POTASSIUM 100 MG TAB PO SCH (08:40)
[2021-07-17] MEDS: GUAIFENESIN/CODEINE 5 ML LIQD PO PRN (12:02)
[2021-07-17] MEDS: ACETAMINOPHEN 325 MG TAB PEG PRN ×2 (12:02→20:56)
[2021-07-17] MEDS ORDERED: FUROSEMIDE 20 MG TAB PO SCH (17:00)
[2021-07-17] MEDS: LOPERAMIDE HCL 2 MG CAP PO PRN (20:55)
[2021-07-18] MEDS: ALBUTEROL/IPRATROPIUM 3 ML NEB NEB SCH ×3 (00:10→13:20)
[2021-07-18 00:54] VITALS: BP 124/50
[2021-07-18] MEDS ORDERED: GUAIFENESIN/CODEINE 5 ML LIQD PO PRN (05:15)
[2021-07-18 05:54] VITALS: BP 106/56
[2021-07-18] MEDS: BUDESONIDE/FORMOTEROL 160/4.5MCG INHALER INH SCH (06:29)
[2021-07-18 07:54] VITALS: BP 116/60
[2021-07-18] MEDS: LOSARTAN POTASSIUM 100 MG TAB PO SCH (08:17)
[2021-07-18] MEDS: POTASSIUM CHLORIDE 10MEQ EA PO SCH ×2 (08:17→15:45)
[2021-07-18] MEDS: MULTIVITAMINS/MINERALS TAB PO SCH (08:17)
[2021-07-18] MEDS: DICYCLOMINE HCL 10 MG CAP PO SCH ×2 (08:17→15:45)
[2021-07-18] MEDS ORDERED: FUROSEMIDE 20 MG TAB PO SCH (09:00)
== END 2021-07-18 16:15 | disposition home health service (06) | DRG 180 ==
LOC: ER 18:20 → ERHOLD 20:47 → MED/SURG3 21:54
PROVIDERS: ADMIT Internal Medicine; ATTEND Internal Medicine
PROC: 3E03329 Introduction of Other Anti-infective into Peripheral Vein, Percutaneous Approach (ICD-10-PCS; 2021-06-28)
PROC: 0BBC3ZX Excision of Right Upper Lung Lobe, Percutaneous Approach, Diagnostic (ICD-10-PCS; principal; 2021-07-07)
DX: C34.11 Malignant neoplasm of upper lobe, right bronchus or lung (principal); J18.9 Pneumonia, unspecified organism; B37.1 Pulmonary candidiasis; J96.21 Acute and chronic respiratory failure with hypoxia; J44.1 Chronic obstructive pulmonary disease with (acute) exacerbation; J44.0 Chronic obstructive pulmonary disease with (acute) lower respiratory infection; C79.51 Secondary malignant neoplasm of bone; E44.1 Mild protein-calorie malnutrition; E77.8 Other disorders of glycoprotein metabolism; E88.09 Other disorders of plasma-protein metabolism, not elsewhere classified; I10 Essential (primary) hypertension; F41.9 Anxiety disorder, unspecified; F17.210 Nicotine dependence, cigarettes, uncomplicated; R53.81 Other malaise; D64.9 Anemia, unspecified; Z82.49 Family history of ischemic heart disease and other diseases of the circulatory system; Z91.81 History of falling; Z87.09 Personal history of other diseases of the respiratory system; Z20.822 Contact with and (suspected) exposure to COVID-19; Z99.81 Dependence on supplemental oxygen; R19.7 Diarrhea, unspecified; Z68.22 Body mass index [BMI] 22.0-22.9, adult
CPT/HCPCS: 32408; 36415; 71045; 71046; 71260; 74470; 77012; 78306; 80053; 82550; 82553; 83605; 83735; 83880; 84484; 85025; 85610; 87040; 87070; 87071; 87205; 88305; 93005; 94640; 94664; 94799; 96360; 97139; 99251; 99284; A9503; J0696; J1650; J2001; J2250; J2920; J3010; J3370; J7030; J7050; Q0162; Q9967; U0002